=== PATIENT | female | born 1960 | race Caucasian/White ===

== ENCOUNTER 2019-06-12 11:39 | Outpatient (CLI) | payer MEDICAID, SELFPAY ==
[2019-06-12] MEDS: iohexol 300 mg/mL 50 mL Btl PO (12:46)
--- NOTE | 2019-06-12 13:00 | CT_ITS ---
WS: [id number] CT ABDOMEN PELVIS TECHNIQUE: Contrast-enhanced CT of the abdomen and pelvis with coronal and sagittal reformatted image s. CLINICAL INFORMATION: ABDOMINAL PAIN COMPARISON: None. DLP: 1213.[address] scans at [facility] use at least one of these dose optimization techniques: automat ed exposure control; mA and/or kV adjustment per patient size (includes targeted exams where dose is matched to clinical indication); or iterative reconstruction. FINDINGS: Liver is normal. Normal gallbladder. Portal vein and splenic vein are patent. Normal spleen. Right ad renal gland is normal. Left adrenal lesion with macroscopic fat measuring 3.4 cm consistent with adre nal myelolipoma. Mild fatty atrophy of the pancreas. Normal spleen. Normal renal parenchymal enhancement. Right renal cyst measuring measuring 13 mm. Tiny left renal cor tical cysts. No obstructing renal or ureteral calculi. Normal GE junction. Lung bases are well aerate d. No evidence of small or large bowel obstruction. No bowel distention. Prior tubal ligation. No free f luid in the abdomen or pelvis. Degenerative disease worse L4-[address]. CT/CT abdomen pelvis w con* [id number] IMPRESSION: 1. No evidence of small large bowel obstruction. No bowel distention. 2. No free fluid in the abdomen or pelvis. 3. No abdominal or pelvic lymphadenopathy. 4. Normal liver and gallbladder. 5. Normal caliber abdominal aorta. 6. Left adrenal myelolipoma measuring 3.4CM. 7. Small right kidney cyst measuring 13 mm. No hydronephrosis in either kidney . 8. No acute abdominal or pelvic findings.
[2019-06-12] MEDS: iohexol 300 mg/mL 100 mL Btl IV (13:19)
== END 2019-06-12 11:40 | disposition home or self-care (01) ==
LOC: RADWPI 11:43
PROVIDERS: Family Provider Nurse Practitioner Family; PCP Family Medicine; Visit Provider Surgery
DX: D17.79 Benign lipomatous neoplasm of other sites (principal); N28.1 Cyst of kidney, acquired; R10.9 Unspecified abdominal pain
CPT/HCPCS: 74177; Q9966; Q9967

== ENCOUNTER 2019-07-02 08:45 | Outpatient (CLI) | payer MEDICAID, SELFPAY ==
--- NOTE | 2019-07-02 08:57 | NM_ITS ---
WS: [id number] NUCLEAR MEDICINE HIDA SCAN WITH GALLBLADDER EJECTION FRACTION HISTORY: ABDOMINAL PAIN COMPARISON: CT abdomen 06/12/2019 TECHNIQUE: The patient was intravenously injected with 8.0 mCi of TC99m Mebrofenin. Immediate imaging over the right upper quadrant was followed by 5 minute image and additional images for a total of 60 minutes. Normal uptake of radiotracer throughout the liver. Activity identified in the gallbladder at 10 minutes and well distended by 60 minutes. Activity in the proximal small bowel was seen by 30 minutes. Good washout of the radiotracer from the liver by 60 minutes. The patient then drank 8 ounces of Ensure Plus. Ejection fraction at 60 minutes was 72%. Normal GB ej ection fraction is 35-75%. Post fatty meal symptoms: None. NM/NM hepatobiliary w phar* [id number] IMPRESSION: 1. Normal HIDA scan. 2. Normal gallbladder ejection fraction.
== END 2019-07-02 08:46 | disposition home or self-care (01) ==
PROVIDERS: Family Provider Nurse Practitioner Family; PCP Family Medicine; Visit Provider Surgery
DX: R10.9 Unspecified abdominal pain (principal)
CPT/HCPCS: 78227; A9537

== ENCOUNTER 2019-11-25 08:47 | Outpatient (CLI) | payer MEDICAID, SELFPAY ==
--- NOTE | 2019-11-25 08:45 | US_ITS ---
WS: [id number] THYROID ULTRASOUND HISTORY: thyroid nodule recheck COMPARISON: None available. Right lobe: 4.4 cm x 1.2 cm x 1.5 cm. Volume: 4.0 cm3. Normal size gland. Hypoechoic 7 x 3 x 6 mm nodule in the mid gland superficially. No increased vascul arity. Left lobe: 4.4 cm x 1.1 cm x 1.3 cm. Volume: 3.3 cm3. Normal size gland and echotexture. Benign-appearing hypoechoic nodule in the superior LEFT thyroid me asures 5 x 2 x 3 mm. Isthmus: 0.3 cm. US/US thyroid [id number] IMPRESSION: 1. Benign-appearing subcentimeter thyroid nodules. 2. No suspicious nodules identified at this time.
== END 2019-11-25 08:48 | disposition home or self-care (01) ==
LOC: RAD 08:49
PROVIDERS: PCP Nurse Practitioner Family; Visit Provider Nurse Practitioner Family
DX: E04.2 Nontoxic multinodular goiter (principal)
CPT/HCPCS: 76536

== ENCOUNTER → 2019-12-18 11:00 | Outpatient (BNVA) | payer MEDICAID, SELFPAY | PROVIDERS: PCP Nurse Practitioner Family; Visit Provider Internal Medicine Nephrology | DX: N18.2 Chronic kidney disease, stage 2 (mild) (principal); E10.9 Type 1 diabetes mellitus without complications; E04.1 Nontoxic single thyroid nodule | CPT/HCPCS: 80053; 80061; 80069; 82043; 82306; 82310; 83036; 83970; 84443; 85025 ==

== ENCOUNTER → 2020-02-02 08:36 | Outpatient (BNVA) | payer MEDICAID, SELFPAY | PROVIDERS: PCP Nurse Practitioner Family; Visit Provider Internal Medicine | DX: E04.1 Nontoxic single thyroid nodule (principal); E10.649 Type 1 diabetes mellitus with hypoglycemia without coma; E10.65 Type 1 diabetes mellitus with hyperglycemia; E34.9 Endocrine disorder, unspecified; E66.9 Obesity, unspecified; I10 Essential (primary) hypertension; R63.5 Abnormal weight gain | CPT/HCPCS: 99204 ==

== ENCOUNTER → 2020-02-04 11:33 | Outpatient (BNVA) | payer MEDICAID, SELFPAY | PROVIDERS: PCP Nurse Practitioner Family; Visit Provider Nurse Practitioner Family | DX: R63.5 Abnormal weight gain (principal) | CPT/HCPCS: 82530 ==

== ENCOUNTER → 2020-03-11 12:13 | Outpatient (BNVA) | payer MEDICAID, SELFPAY | PROVIDERS: PCP Nurse Practitioner Family; Visit Provider Surgery | DX: Z11.59 Encounter for screening for other viral diseases (principal); R10.9 Unspecified abdominal pain | CPT/HCPCS: 87635 ==

== ENCOUNTER 2020-03-16 06:39 | Day surgery (SDC) | payer MEDICAID, SELFPAY ==
[2020-03-11 08:33] VITALS: BMI 32.5
[2020-03-16 06:47] VITALS: BP 148/66; PULSE 74; RESP 18; TEMP 36.1; O2SAT 96
[2020-03-16] MEDS: sodium chloride 0.9% 1,000 ML 30 ML IV (07:14)
[2020-03-16 07:15] LABS: Glucose Point of Care 231 mg/dL (70-110)
--- NOTE | 2020-03-16 07:23 | P.ANESASSM_ITS ---
Pre-Anesthetic Assessment Pre-Anesthetic Assessment: Height/Weight: Height 1.75 m Weight 99.79 kg Temp Pulse Resp BP Pulse Ox 97 F L 74 18 148/66 96 03/16/20 06:47 03/16/20 06:47 03/16/20 06:47 03/16/20 06:47 03/16/20 06:47 Preop Diagnosis: Abdominal pain Proposed Procedure: Operation Date: 03/16/20 07:30 Proposed Procedures p Colonoscopy 52607 R10.9(Not Applicable) - Gunnar Ayon MD Familial anesthetic complications: denies Was Beta Calixto taken within 24 hours: Yes Last intake: Intake Last Liquid Date 03/15/20 Last Liquid Time 20:00 Last Solid Date 03/14/20 Last Solid Time 18:00 Last Intake: 00:01 Social: Social History: No alcohol and No tobacco Exam: Pre-Anes Outpt Exam: alert, oriented x 3 and clear to auscultation bilaterally Airway: Submandibular: WNL Cervical ROM: WNL MP: 2 Pulmonary: Pulmonary: None reported CV/HEM: CV/HEM: Afib, Arrythmia (a-fibb), CAD (stents x2 in 1999 and 2008 ), HTN and DC Comments: Dr. Samuels seen him 3-4 months ago and cleared for anesthesia : : None reported (cyst on kidney and cyst on adrenal gland) Hepatic: Hepatic: None reported GI: GI: Hiatus hernia Metabolic: Metabolic: DM (Insulin dependent ), Morbid obesity and Thyroid (thyroid nodules bilaterally ) Musc/skel: Musc/skel: Fibromyalgia, Lower Back Pain and RA Neuropsych: Neuropsych: None reported Anesthetic Plan: ASA status: 3 Anesthesia: Anesthesia Evaluation and MAC Meds/Allergies Current Medications: Current Medications Generic Name Dose Route Start Last Admin Trade Name Freq PRN Reason Stop Dose Admin Sodium Chloride 1,000 mls @ 30 ml s/hr 03/16/20 06:45 03/16/20 07:14 Sodium Chloride 0.9% IV 03/17/20 06:44 30 mls/hr .Q24H NARESH Administration PFSH Anesthesia PFSH: Medical History COPD (chronic obstructive pulmonary disease) Diabetes Fibromyalgia Hyperlipidemia Hypertension Left lower quadrant pain Major depressive disorder Umbilical hernia Surgical History History of appendectomy History of History of eye surgery History of heart artery stent 2 seperate surgeries History of tubal ligation Family History Mother Diabetes Hypertension CAD (coronary artery disease) Father Hypertension CAD (coronary artery disease) Heart attack Denies family history of Anesthesia complication Bleeding disorder Social History Smoking and tobacco status: never smoked Second hand smoke exposure: No Alcohol intake: never Lives independently: Yes Marital status: Current occupational status: disabled History of recent travel: No Current gender identity: Female Dayna/Christian: None Data Anesthesia Other Labs: Laboratory Results - last 48 hr 03/16/20 07:10 POC Glucose 231 Cardiac Studies: No Data to Display
--- NOTE | 2020-03-16 07:46 | W.PM.OPSUD ---
Surgery/Procedure H&P Update DATE OF PROCEDURE: March 16, 2020 DATE H&P PERFORMED: 02/29/20 H&P UPDATE INFORMATION: I have reviewed H&P completed within last 30 days, I have examined patient prior to procedure and No changes to prior documentation PREOP DIAGNOSIS: Abdominal pain PRIMARY INDICATION FOR PROCEDURE: The same PLANNED PROCEDURE: Operation Date: 03/16/20 07:30 Proposed Procedures p Colonoscopy 60488 R10.9(Not Applicable) - Gunnar Ayon MD
[2020-03-16 08:22] VITALS: BP 153/66; PULSE 72; RESP 18; TEMP 36.2; O2SAT 96
[2020-03-16 08:35] VITALS: BP 144/59; PULSE 69; RESP 18; TEMP 36.4; O2SAT 98
--- NOTE | 2020-03-16 08:50 | ANE.PACU2 ---
Inpatient post-anesthesia follow up: Airway intact: Yes Vital signs: Temperature 97.5 F Pulse Rate 69 Respiratory Rate 18 Blood Pressure 144/59 Pulse Oximetry 98 Oxygen Delivery Me thod Room Air Oxygen Flow Rate Fraction of Inspir ed Oxygen Hydration adequate: Yes Nausea and vomiting: No Pain level: 1 Mental status: Baseline
== END 2020-03-16 08:49 | disposition home or self-care (01) ==
PROVIDERS: PCP Family Medicine; Visit Provider Surgery
PROC: 0DJD8ZZ Inspection of Lower Intestinal Tract, Via Natural or Artificial Opening Endoscopic (ICD-10-PCS; CPT 45378; principal; 2020-03-16 07:30)
DX: R10.9 Unspecified abdominal pain (principal); I48.91 Unspecified atrial fibrillation; I25.10 Atherosclerotic heart disease of native coronary artery without angina pectoris; Z95.5 Presence of coronary angioplasty implant and graft; I10 Essential (primary) hypertension; I25.2 Old myocardial infarction; E11.9 Type 2 diabetes mellitus without complications; Z79.4 Long term (current) use of insulin; M79.7 Fibromyalgia; M06.9 Rheumatoid arthritis, unspecified; J44.9 Chronic obstructive pulmonary disease, unspecified; F32.9 Major depressive disorder, single episode, unspecified
CPT/HCPCS: 12345; 36416; 45378; 82962; J2704; J7030

== ENCOUNTER → 2020-03-21 09:39 | Outpatient (BNVA) | payer MEDICAID, SELFPAY | PROVIDERS: PCP Family Medicine; Visit Provider Internal Medicine | DX: E04.1 Nontoxic single thyroid nodule (principal); E10.649 Type 1 diabetes mellitus with hypoglycemia without coma; E10.65 Type 1 diabetes mellitus with hyperglycemia; E66.9 Obesity, unspecified; I10 Essential (primary) hypertension; R63.5 Abnormal weight gain | CPT/HCPCS: 99214 ==

== ENCOUNTER → 2020-05-12 09:42 | Outpatient (BNVA) | payer MEDICAID, SELFPAY | PROVIDERS: PCP Family Medicine; Visit Provider Orthopaedic Surgery | DX: M54.5 Low back pain (principal) | CPT/HCPCS: 72114 ==

== ENCOUNTER → 2020-05-31 14:36 | Outpatient (BNVA) | payer MEDICAID, SELFPAY | PROVIDERS: PCP Family Medicine; Visit Provider Internal Medicine Pulmonary Disease | DX: E03.9 Hypothyroidism, unspecified (principal); J44.9 Chronic obstructive pulmonary disease, unspecified; R63.5 Abnormal weight gain; R06.02 Shortness of breath; E04.1 Nontoxic single thyroid nodule | CPT/HCPCS: 82785; 84439; 84443; 85025; 86003; 86331; 86606; 86609; 87635 ==

== ENCOUNTER 2020-06-09 09:48 | Outpatient (CLI) | payer MEDICAID, SELFPAY ==
--- NOTE | 2020-06-09 10:29 | PFTS_ITS ---
Date of Study:06/09/20 Date of Dictation: 06/16/2020 MECHANICS: Forced vital capacity (FVC) is reduced. Forced expiratory volume in one second (FEV1) is . Reduced to 66 FEV1/FVC is normal. FLOW VOLUME LOOP: . LUNG VOLUMES: Total lung capacity (TLC) is low normal. Residual volume (RV) is low normal. DIFFUSING CAPACITY FOR CARBON MONOXIDE: Normal . INTERPRETATION: The spirometry consistent with restrictive pattern. Low normal lung volumes suggestive of restrictive lung disease. Normal gas transfer. Please correlate clinically MTDD
[2020-06-09 10:31] VITALS: BP 149/69; BP 161/75
== END 2020-06-09 09:49 | disposition home or self-care (01) ==
LOC: RT 09:51
PROVIDERS: PCP Family Medicine; Visit Provider Internal Medicine Pulmonary Disease
DX: J44.9 Chronic obstructive pulmonary disease, unspecified (principal)
CPT/HCPCS: 94010; 94618; 94726; 94729

== ENCOUNTER → 2020-07-11 09:37 | Outpatient (BNVA) | payer MEDICAID, SELFPAY | PROVIDERS: PCP Family Medicine; Visit Provider Internal Medicine | DX: E03.9 Hypothyroidism, unspecified (principal); E04.1 Nontoxic single thyroid nodule; E10.649 Type 1 diabetes mellitus with hypoglycemia without coma; E10.65 Type 1 diabetes mellitus with hyperglycemia; E34.9 Endocrine disorder, unspecified; E66.9 Obesity, unspecified; R63.5 Abnormal weight gain | CPT/HCPCS: 95250; 99215 ==

== ENCOUNTER 2020-07-13 12:00 | Outpatient (CLI) | payer MEDICAID, SELFPAY | END 2020-07-13 12:01 | disposition home or self-care (01) | LOC: SLEEP 07-14 09:50 | PROVIDERS: PCP Family Medicine; Visit Provider Internal Medicine Pulmonary Disease | DX: G47.33 Obstructive sleep apnea (adult) (pediatric) (principal) | CPT/HCPCS: G0399 ==

== ENCOUNTER 2020-07-14 09:48 | Outpatient (CLI) | payer MEDICAID, SELFPAY ==
--- NOTE | 2020-07-14 11:30 | CT_ITS ---
WS: [id number] CT ABDOMEN PELVIS TECHNIQUE: Contrast-enhanced CT of the abdomen and pelvis with coronal and sagittal reformatted image s. CLINICAL INFORMATION: R10.84 - Generalized abdominal pain COMPARISON: CT June 12, 2019 DLP: 1938.[address] scans at [facility] use at least one of these dose optimization techniques: automat ed exposure control; mA and/or kV adjustment per patient size (includes targeted exams where dose is matched to clinical indication); or iterative reconstruction. FINDINGS: Normal liver. Normal portal vein and splenic vein. Normal gallbladder. Normal GE junction. Portal vein and splenic veins are patent. Stable left adrenal lesion with macroscopic fat measuring 3.5 cm consistent with myelolipoma. Fatty a trophy of the pancreas. Spleen is normal. Stable right renal cyst measuring 13 mm. Stable small left renal cortical cysts. Normal renal parench ymal enhancement. No hydronephrosis. No evidence of small or large bowel obstruction. Prior tubal ligation. No free fluid in the abdomen o r pelvis. Incidental fat-containing umbilical hernia. No abdominal or pelvic lymphadenopathy. No ingu inal lymphadenopathy. Degenerative disc disease worse L4-5 with moderate to severe central canal sten osis.. CT/CT abdomen pelvis w con* [id number] IMPRESSION: 1. No acute abdominal or pelvic findings. 2. Stable left adrenal myelolipoma. 3. No hydronephrosis in either kidney. Small bilateral renal cysts. 4. Tubal ligation clips. 5. No evidence of small or large bowel obstruction. 6. No abdominal or pelvic lymphadenopathy. 7. Moderate to severe central canal stenosis L4-5 with degenerative disc disea se at this level.
[2020-07-14] MEDS: iohexol 300 mg/mL 100 mL Btl PO (11:33)
[2020-07-14] MEDS: iohexol 300 mg/mL 50 mL Btl PO (11:34)
== END 2020-07-14 09:49 | disposition home or self-care (01) ==
LOC: CT 09:49
PROVIDERS: PCP Family Medicine; Visit Provider Nurse Practitioner Family
DX: R10.84 Generalized abdominal pain (principal); M48.061 Spinal stenosis, lumbar region without neurogenic claudication; M51.36 Other intervertebral disc degeneration, lumbar region; D17.79 Benign lipomatous neoplasm of other sites
CPT/HCPCS: 74177

== ENCOUNTER → 2020-07-18 09:26 | Outpatient (BNVA) | payer MEDICAID, SELFPAY | PROVIDERS: PCP Family Medicine; Visit Provider Family Medicine | DX: J44.9 Chronic obstructive pulmonary disease, unspecified (principal); J98.4 Other disorders of lung; J84.9 Interstitial pulmonary disease, unspecified; E03.9 Hypothyroidism, unspecified; E10.65 Type 1 diabetes mellitus with hyperglycemia; E34.9 Endocrine disorder, unspecified; E78.5 Hyperlipidemia, unspecified | CPT/HCPCS: 80053; 80061; 82310; 83036; 83970; 84439; 84443; 85025; 85651; 86140; 86225; 86235 ==

== ENCOUNTER 2020-07-25 10:57 | Outpatient (CLI) | payer MEDICAID, SELFPAY ==
--- NOTE | 2020-07-25 12:13 | XR_ITS ---
WS: [id number] CHEST 2 VIEWS HISTORY: Dyspnea on exertion COMPARISON: 10/18/2018 Lungs: Focal area of increased opacification at the medial RIGHT lung base. New since the prior exami nation. Otherwise lungs are clear. Cardiac size: Normal. Mediastinum/Aorta: Normal mediastinum. Bones: Normal. XR/XR chest 2V* [id number] IMPRESSION: Subsegmental area of pneumonitis at the medial RIGHT lung base. Otherwise negat man.
== END 2020-07-25 10:58 | disposition home or self-care (01) ==
LOC: RAD 11:06 → RADWPI 12:15
PROVIDERS: PCP Family Medicine; Visit Provider Internal Medicine Pulmonary Disease
DX: E04.1 Nontoxic single thyroid nodule (principal); E10.649 Type 1 diabetes mellitus with hypoglycemia without coma; E10.65 Type 1 diabetes mellitus with hyperglycemia; E34.9 Endocrine disorder, unspecified; E66.9 Obesity, unspecified; I10 Essential (primary) hypertension; R63.5 Abnormal weight gain; R06.02 Shortness of breath; J18.9 Pneumonia, unspecified organism
CPT/HCPCS: 71046; 95251; 99214

== ENCOUNTER 2020-09-05 08:56 | Outpatient (CLI) | payer MEDICAID, SELFPAY ==
--- NOTE | 2020-09-05 09:15 | CT_ITS ---
WS: [id number] CT CHEST noncontrast, high-resolution. HISTORY: rule out interstitial lung disease TECHNIQUE: High-resolution chest CT. Coronal and sagittal reformats are submitted. All CT scans at [facility] use at least one of these dose optimization techniques: automated exposure contr ol; mA and/or kV adjustment per patient size (includes targeted exams where dose is matched to clinic al indication); or iterative reconstruction. CONTRAST: None DLP: 1754.88 mGycm COMPARISON: 10/18/2018 Lungs and central airway: Good inspiration with no areas of groundglass attenuation or mosaic attenua tion. There is some very minimal distal interstitial thickening which is nonspecific. There is no hon eycombing or bronchiectasis. With expiration and prone positioning. There is no focal area of atelect asis and no air trapping. Pleura: Normal. No pleural effusion. Heart and pericardium: Heart is slightly enlarged. Coronary artery atherosclerosis and coronary arter y stents are noted. No pericardial effusion. Mediastinum and magui: No mediastinum or hilar adenopathy. Vessels: Pulmonary artery size is equal to the aorta. Mild atherosclerosis of the aorta. Chest wall and lower neck: No soft tissue masses. Upper abdomen: Stable LEFT adrenal myelolipoma measuring 2.9 x 2.3 cm. Osseous structures: No destructive process. CT/CT chest wo con [id number] IMPRESSION: 1. No evidence for significant interstitial lung disease. There is no honeycom ahsan or bronchiectasis or air trapping. 2. Very minimal nonspecific thickening of the distal airways. May be represent ative of early interstitial lung disease or changes of pneumonitis/respiratory bronchiolitis. 3. Stable LEFT adrenal myelolipoma.
== END 2020-09-05 08:57 | disposition home or self-care (01) ==
PROVIDERS: PCP Family Medicine; Visit Provider Internal Medicine Pulmonary Disease
DX: J84.9 Interstitial pulmonary disease, unspecified (principal); D17.79 Benign lipomatous neoplasm of other sites
CPT/HCPCS: 71250

== ENCOUNTER → 2020-09-13 10:02 | Outpatient (BNVA) | payer MEDICAID, SELFPAY | PROVIDERS: PCP Family Medicine; Visit Provider Internal Medicine Interventional Cardiology | DX: E78.2 Mixed hyperlipidemia (principal) | CPT/HCPCS: 80061 ==

== ENCOUNTER 2020-09-15 20:00 | Outpatient (CLI) | payer MEDICAID, SELFPAY | END 2020-09-15 20:01 | disposition home or self-care (01) | LOC: SLEEP 09-16 09:07 | PROVIDERS: PCP Family Medicine; Visit Provider Internal Medicine Pulmonary Disease | DX: G47.33 Obstructive sleep apnea (adult) (pediatric) (principal) | CPT/HCPCS: 95811 ==

== ENCOUNTER → 2020-10-19 09:38 | Outpatient (BNVA) | payer MEDICAID, SELFPAY | PROVIDERS: PCP Family Medicine; Visit Provider Family Medicine | DX: E03.9 Hypothyroidism, unspecified (principal); E10.9 Type 1 diabetes mellitus without complications; E78.2 Mixed hyperlipidemia; I10 Essential (primary) hypertension | CPT/HCPCS: 80053; 80061; 83036; 84443; 85025 ==

== ENCOUNTER → 2020-10-26 10:44 | Outpatient (BNVA) | payer MEDICAID, SELFPAY | PROVIDERS: PCP Family Medicine; Visit Provider Family Medicine | DX: Z01.419 Encounter for gynecological examination (general) (routine) without abnormal findings (principal); Z12.31 Encounter for screening mammogram for malignant neoplasm of breast | CPT/HCPCS: 88175 ==

== ENCOUNTER 2020-11-18 13:51 | Outpatient (CLI) | payer MEDICAID, SELFPAY ==
--- NOTE | 2020-11-18 14:15 | USCV_ITS ---
Cheryl Gordon Age: 60 Gender: F : 1960 Exam Date: 11/18/2020 14:03 Ordering Phys: Tj Lipscomb MD Technologist: Nurys Boyd Exam Location: [facility] [place] Indication: dyspnea, unspecified BP: 128 / 82 HR: 58 Rhythm: Sinus Technical Quality: Adequate MEASUREMENTS (Male / Female) Normal Values 2D ECHO LV Diastolic Diameter PLAX 2.8 cm 4.2 - 5.9 / 3.9 - 5.3 cm LV Systolic Diameter PLAX 1.7 cm IVS Diastolic Thickness 1.9 cm 0.6 - 1.0 / 0.6 - 0.9 cm IVS Systolic Thickness 1.9 cm LVPW Diastolic Thickness 1.1 cm 0.6 - 1.0 / 0.6 - 0.9 cm LVPW Systolic Thickness 1.8 cm LVOT Diameter 2.1 cm LV Ejection Fraction 2D Teich 72.6 % LV Ejection Fraction MOD 2C 79.1 % LV Ejection Fraction 2C AL 80.2 % LA Diameter 3.0 cm LA Width 2.8 cm LA Height 4.9 cm RA Width 3.1 cm RA Height 3.6 cm Aorta at Sinotubular Diameter 2.9 cm M-MODE Aortic Annulus Diameter 3.2 cm LA Ao Ratio MM 0.9 MV E Point Septal Separation 0.2 cm DOPPLER AV Peak Velocity 142.0 cm/s LVOT Peak Velocity 154.0 cm/s AV Area Cont Eq vti 3.7 cm squared AV Area Cont Eq pk 3.6 cm squared MV Peak Velocity 126.0 cm/s MV Area PHT 3.1 cm squared Mitral E to A Ratio 0.9 MV E' Velocity 56.0 cm/s Mitral E to MV E' Ratio 15.5 Mitral E to LV E' Lateral Ratio 13.0 Mitral E to LV E' Septal Ratio 19.6 TR Peak Velocity 196.0 cm/s TR Peak Gradient 15.4 mmHg TR Mean Velocity 135.9 cm/s TR Mean Gradient 9.3 mmHg TR Velocity Time Integral 51.1 cm Right Atrial Pressure 3.0 mmHg Pulmonary Artery Systolic Pressu 18.4 mmHg PV Peak Velocity 88.0 cm/s RV Acceleration Time 0.1 s RV Ejection Time 0.3 s RV AcT/ET 0.5 FINDINGS Left Ventricle Normal left ventricular cavity size. Normal left ventricular systolic function. No regional wall motion abnormalities. Left ventricular ejection fraction is estimated at 60 %. Grade I/IV diastolic dysfunction (abnormal relaxation filling pattern), normal to mildly elevated filling pressures. Right Ventricle The right ventricle is normal in size and function. Right Atrium The right atrium is normal in size. Left Atrium The left atrium is normal in size. Mitral Valve Structurally normal mitral valve without significant stenosis or prolapse. There is no mitral regurgitation. Aortic Valve Structurally normal aortic valve without significant sclerosis or stenosis. There is no aortic regurgitation. Tricuspid Valve Structurally normal tricuspid valve without significant stenosis or regurgitation. Pulmonary artery systolic pressure is normal. Pulmonic Valve Structurally normal pulmonic valve without significant stenosis. There is no pulmonic regurgitation. Pericardium Normal pericardium without effusion. Aorta Normal ascending aorta dimension. CONCLUSIONS 1-Normal left ventricular cavity size. Normal left ventricular systolic function. No regional wall motion abnormalities. Left ventricular ejection fraction is estimated at 60 %. Grade I/IV diastolic dysfunction (abnormal relaxation filling pattern), normal to mildly elevated filling pressures. 2-No significant valve abnormalities. 3-There is no pericardial effusion. 4-Pulmonary artery systolic pressure is within normal limits. 5-Right atrial pressure is around 5 mm of mercury. 6-Due to poor quality images in the prior study cannot draws a comparison Wilda Vargas MD (Electronically Signed) Final Date: 18 November 2020 19:11 S
== END 2020-11-18 13:52 | disposition home or self-care (01) ==
LOC: US 13:51
PROVIDERS: PCP Family Medicine; Visit Provider Internal Medicine Pulmonary Disease
DX: R06.00 Dyspnea, unspecified (principal)
CPT/HCPCS: 93306

== ENCOUNTER 2020-12-02 10:09 | Outpatient (CLI) | payer MEDICAID, SELFPAY ==
--- NOTE | 2020-12-02 10:00 | MM_ITS ---
WS: [id number] Bilateral screening digital mammogram, 12/02/2020 Clinical Data: Z12.31 - Encounter for screening mammogram for malignant ... Comparison: 01/29/2019, 04/17/2017. Findings: The breast parenchymal pattern shows fat replacement. No spiculated masses or clustered calcification s are seen. There are no secondary signs of carcinoma. There is a mole marker on the left breast. The re are small lymph nodes in both axilla. MM/[place] [id number] Impression: 1. Negative bilateral mammogram unchanged. 2. Recommend annual screening mammograms. BIRADS: 1-Negative FOLLOW UP: 1 Year Follow-up The CAD checker stocker was used.
== END 2020-12-02 10:10 | disposition home or self-care (01) ==
LOC: RADSHAW 10:12
PROVIDERS: PCP Family Medicine; Visit Provider Family Medicine
DX: Z12.31 Encounter for screening mammogram for malignant neoplasm of breast (principal)
CPT/HCPCS: 77067

== ENCOUNTER → 2020-12-15 09:40 | Outpatient (BNVA) | payer MEDICAID, SELFPAY | PROVIDERS: PCP Family Medicine; Visit Provider Internal Medicine Nephrology | DX: N18.31 Chronic kidney disease, stage 3a (principal); E11.9 Type 2 diabetes mellitus without complications; I10 Essential (primary) hypertension; E78.5 Hyperlipidemia, unspecified; E03.9 Hypothyroidism, unspecified; I25.10 Atherosclerotic heart disease of native coronary artery without angina pectoris; Z79.899 Other long term (current) drug therapy | CPT/HCPCS: 80069; 82043; 82306; 82310; 83970; 85025 ==

== ENCOUNTER 2020-12-30 14:12 | Emergency (ER) | payer MEDICAID, SELFPAY ==
[2020-12-30 14:21] VITALS: BP 182/71; PULSE 65; RESP 15; TEMP 36.9; O2SAT 97; BMI 34.3
--- NOTE | 2020-12-30 16:02 | USR_ITS ---
PROCEDURE INFORMATION: Exam: US Abdomen; Limited Exam date and time: 12/30/2020 4:02 PM Age: 60 years old Clinical indication: Abdominal pain; Prior surgery; Surgery date: 6+ months; Surgery type: Appy removed in 3rd grade; Additional info: Bruising, pain, swelling right side TECHNIQUE: Imaging protocol: US abdomen. Real time ultrasound with image documentation. Limited exam focused on the region of clinical interest. COMPARISON: US Abdomen* [id number] 01/29/2019 8:40 AM FINDINGS: Liver: The liver is of normal echogenicity measuring 14.3 cm. Gallbladder: Negative Martinez sign. No gallstones. Normal gallbladder wall thickness. Common bile duct: CBD 4.2 mm. No intrahepatic ductal dilatation. Pancreas: The pancreas is obscured by bowel gas. Intraperitoneal space: No ascites. US/US abdomen limited [id number] IMPRESSION: No acute findings.
--- NOTE | 2020-12-30 16:04 | ED_ITS ---
HPI - Abdominal Pain General: Chief Complaint: Abdominal Pain Stated Complaint: rash on lower extremities, Pain in Lower ABD Time Seen by Provider: 12/30/20 15:57 History of Present Illness: HPI narrative: Patient here because she said she is post getting an abdominal ultrasound done, that was ordered by her primary care provider, which history shows vaginal OB ultrasound was ordered. Patient states pain is upper right quadrant mid quadrant area states she has some bruising feels like a lump there. Also has a rash on her lower extremities that itch pretty bad and not responding to injection she received. MD elicited complaint: abdominal pain and other (Rash) Onset (ago): day(s) Pain Consistency: intermittent Associated Symptoms: Denies chills, fever(s), nausea and vomiting Review of Systems Const: Denies: fever(s), chills or body aches Eyes: Denies: change in vision or blurry vision ENMT: Denies: throat pain or nasal congestion Card: Denies: chest pain or dyspnea on exertion Resp: Denies: dyspnea, productive cough or non-productive cough GI: Reports: abdominal pain; Denies: nausea or vomiting Musc: Denies: extremity pain Skin/Breast: Reports: rash (Both lower extremities), pruritus and erythema Neuro: Denies: headache(s) Psych: Denies: anxiety or depression Bello/Lymph: Denies: easy bruising PFSH ED PFSH: Medical History COPD (chronic obstructive pulmonary disease) Diabetes Fibromyalgia Hyperlipidemia Hypertension Left lower quadrant pain Major depressive disorder Umbilical hernia Surgical History History of appendectomy History of History of eye surgery History of heart artery stent 2 seperate surgeries History of tubal ligation Family History Mother Diabetes Hypertension CAD (coronary artery disease) Father Hypertension CAD (coronary artery disease) Heart attack Denies family history of Anesthesia complication Bleeding disorder Social History Second hand smoke exposure: Yes Smoking risk assessment/counseling performed?: Yes Alcohol intake: never Lives independently: Yes Household members: none Housing: Apartment Marital status: Current occupational status: disabled Pets and animals: Yes History of recent travel: No Current gender identity: Female Dayna/Jain: None Physical Exam Const: COMMON NORMALS: no acute distress, average body habitus and patient oriented x3 HENMT: COMMON NORMALS: normocephalic HEAD & SCALP: normal to inspection and normocephalic FACE & SINUS: normal facial exam Eye: COMMON NORMALS: conjunctivae normal GENERAL EYE: appearance normal, both eyes and all related structures CONJUNCTIVA: Yes conjunctivae normal Neck/C-Spine: COMMON NORMALS: no JVD Chest: COMMONS NORMALS: normal inspection of the chest Resp: COMMON NORMALS: normal respiratory effort and clear to auscultation bilaterally AUSCULTATION: clear to auscultation bilaterally Cardio: COMMON NORMALS: no JVD, regular rate and regular rhythm RATE: regular rate RHYTHM: regular rhythm GI: AUSCULTATION: Yes normoactive bowel sounds PALPATION: Yes Tenderness to palpation present (GI) (Possibly mild bruising noted hard to determine there is a lot due to size) Details: RLQ and RUQ PERCUSSION: normal to percussion Extremity: COMMON NORMALS: normal to inspection and full ROM Neuro: COMMON NORMALS: patient oriented x3 Skin: OTHER: Has a red maculopapular rash on both lower extremities worse on the right than the left on the calves. Nonblanching Course Vital Signs: Vital signs: Vital Signs Temperature 98.5 F 12/30/20 14:21 Pulse Rate 65 12/30/20 14:21 Respiratory Rate 15 12/30/20 14:21 Blood Pressure 182/71 12/30/20 14:21 Pulse Oximetry 97 12/30/20 14:21 MDM - Abdominal Pain MDM Narrative: Medical decision making narrative: Ultrasounds negative. Does show increased bowel gas area. Patient is happy with the results. Rash appears to be contact Derm lower extremities. Patient brought hydrocortisone cream use [id number]. Patient follow-up Dr. Myers. Discharge Plan Discharge Patient Disposition: Home Clinical Impression: Abdominal pain Qualifiers: Abdominal location: generalized Qualified Code(s): R10.84 - Generalized abdominal pain Contact dermatitis Qualifiers: Contact dermatitis type: irritant Contact dermatitis trigger: other trigger Qualified Code(s): L24.89 - Irritant contact dermatitis due to other agents Condition: Stable Prescriptions: No Action ezetimibe 10 mg tablet 10 mg PO DAILY RF: 0 amlodipine 5 mg tablet 5 mg PO BID Qty: 60 RF: 3 aspirin 81 mg tablet,delayed release (DR/EC) 81 mg PO DAILY RF: 0 epinephrine 0.1 mg/0.1 mL auto-injector 0.1 ml IM PRN (Reason: Allergic Reaction) RF: 0 Novolog Flexpen U-100 Insulin 100 unit/mL (3 mL) insulin pen 6 unit SUBCUT TID RF: 0 carvedilol 6.25 mg tablet 6.25 mg PO BID Qty: 60 RF: 4 furosemide [Lasix] 40 mg tablet 40 mg PO QAM Qty: 90 RF: 1 trazodone 150 mg tablet See Rx Instructions .ROUTE .COMPLEX Qty: 90 RF: 1 ceftriaxone 1 gram recon soln 1 g IM ONCE Qty: 1 RF: 0 lidocaine (PF) 20 mg/mL (2 %) solution 20 mg IM ONCE Qty: 2 RF: 0 clindamycin HCl 300 mg capsule 300 mg PO TID Qty: 30 RF: 0 (DME) lancets Misc See Rx Instructions .ROUTE .MEDSUPPLY Qty: 200 RF: 5 (DME) blood-glucose meter [OneTouch Verio Meter] Misc See Rx Instructions .ROUTE .MEDSUPPLY Qty: 1 RF: 0 paroxetine HCl 40 mg tablet 40 mg PO DAILY Qty: 90 RF: 0 lisinopril 20 mg tablet See Rx Instructions .ROUTE .COMPLEX Qty: 90 RF: 1 (DME) Blood Glucose Test Strip See Rx Instructions .ROUTE .MEDSUPPLY Qty: 100 RF: 3 (DME) pen needle, diabetic [TechLITE Pen Needle] 31 gauge x 5/16 needle See Rx Instructions .ROUTE .MEDSUPPLY Qty: 400 RF: 4 albuterol sulfate [ProAir HFA] 90 mcg/actuation HFA aerosol inhaler 2 puff inhalation QID PRN (Reason: shortness of breath or wheezing) Qty: 18 RF: 3 nitroglycerin 0.4 mg tablet, sublingual See Rx Instructions .ROUTE .COMPLEX Qty: 25 RF: 0 levothyroxine 25 mcg capsule 25 mcg PO DAILY Qty: 30 RF: 3 Levemir FlexTouch U-100 Insuln 100 unit/mL (3 mL) insulin pen See Rx Instructions .ROUTE .COMPLEX Qty: 15 RF: 0 atorvastatin 80 mg tablet See Rx Instructions .ROUTE .COMPLEX Qty: 90 RF: 0 sucralfate 100 mg/mL suspension 5 ml PO QID Qty: 200 RF: 3 Discharge Orders: Discharge ED (Routine); Ordered 12/30/20 Ordered By: Joel Perez Referrals: Lesvia Myers MD [Primary Care Provider] - Discharge Diet: Advance as tolerated and As Directed Discharge Activity: Resume usual activity Patient Instructions: Contact Dermatitis (ED), Abdominal Pain (ED) Activity Restrictions/Additional Instructions: Follow-up with medical provider as directed. Take medications as prescribed. Return to the ER or your medical provider if condition worsens. Please read and understand discharge instructions. If any questions ask please. Coding Level of Care Code ED Cryogenic Transport Driver for Kayleigh Fwd Exam Comprehensive
== END 2020-12-30 16:51 | disposition home or self-care (01) ==
PROVIDERS: Emergency Provider Nurse Practitioner Family; PCP Family Medicine
DX: R10.84 Generalized abdominal pain (principal); L24.89 Irritant contact dermatitis due to other agents; J44.9 Chronic obstructive pulmonary disease, unspecified; E11.9 Type 2 diabetes mellitus without complications; E78.5 Hyperlipidemia, unspecified; I10 Essential (primary) hypertension; Z79.4 Long term (current) use of insulin
CPT/HCPCS: 76705; 99282

== ENCOUNTER → 2021-01-18 09:07 | Outpatient (BNVA) | payer MEDICAID, SELFPAY | PROVIDERS: PCP Family Medicine; Visit Provider Family Medicine | DX: E10.65 Type 1 diabetes mellitus with hyperglycemia (principal) | CPT/HCPCS: 83036 ==

== ENCOUNTER → 2021-02-01 09:54 | Outpatient (BNVA) | payer MEDICAID, SELFPAY | PROVIDERS: PCP Family Medicine; Visit Provider Nurse Practitioner Women's Health | DX: R10.2 Pelvic and perineal pain (principal); N85.4 Malposition of uterus | CPT/HCPCS: 76830 ==

== ENCOUNTER → 2021-02-06 00:01 | Outpatient (BNVA) | payer MEDICAID, SELFPAY | PROVIDERS: PCP Family Medicine; Visit Provider Obstetrics & Gynecology | DX: R35.0 Frequency of micturition (principal); N39.46 Mixed incontinence; N81.9 Female genital prolapse, unspecified; N81.10 Cystocele, unspecified; N81.6 Rectocele | CPT/HCPCS: 87086 ==

== ENCOUNTER → 2021-02-15 10:53 | Outpatient (BNVA) | payer MEDICAID, SELFPAY | PROVIDERS: PCP Family Medicine; Visit Provider Internal Medicine Nephrology | DX: N18.2 Chronic kidney disease, stage 2 (mild) (principal) | CPT/HCPCS: 80048; 82043; 82310; 83970; 85025 ==

== ENCOUNTER → 2021-02-16 15:00 | Outpatient (BNVA) | payer MEDICAID, SELFPAY | PROVIDERS: PCP Family Medicine; Visit Provider Family Medicine | DX: R35.0 Frequency of micturition (principal); M25.562 Pain in left knee; G89.29 Other chronic pain; K29.70 Gastritis, unspecified, without bleeding | CPT/HCPCS: 81000 ==

== ENCOUNTER 2021-05-04 10:02 | Outpatient (CLI) | payer MEDICAID, SELFPAY ==
--- NOTE | 2021-05-04 10:13 | US_ITS ---
WS: [id number] Complete ABDOMINAL ULTRASOUND HISTORY: right lower quad pain COMPARISON: None available. Liver: 13.3 cm in length. Liver is normal size and echogenicity with no mass or intrahepatic dilatati on. Portal Vein: Normal hepatopetal flow with monophasic waveform. Gallbladder: Normally distended with no gallstones, wall thickening or pericholecystic fluid. Gallbladder wall thickness: 0.3 cm. Pancreas: Normal size and echogenicity. CBD: 0.3 cm. Right kidney: 10.9 cm x 5.2 cm x 5.5 cm. No mass, cortical thickening or hydronephrosis. Left kidney: 9.7 cm x 4.8 cm x 5.7 cm. No mass, cortical thickening or hydronephrosis. Spleen: Normal size and echogenicity. Abdominal aorta and IVC are within normal limits. No ascites. US/US abdomen complete* [id number] IMPRESSION: Normal complete abdomen ultrasound.
== END 2021-05-04 10:03 | disposition home or self-care (01) ==
LOC: US 10:05
PROVIDERS: PCP Family Medicine; Visit Provider Obstetrics & Gynecology
DX: R10.31 Right lower quadrant pain (principal)
CPT/HCPCS: 76700

== ENCOUNTER → 2021-05-23 13:58 | Outpatient (BNVA) | payer MEDICAID, SELFPAY | PROVIDERS: PCP Family Medicine; Visit Provider Obstetrics & Gynecology | DX: R32 Unspecified urinary incontinence (principal); N85.4 Malposition of uterus | CPT/HCPCS: 76830 ==

== ENCOUNTER 2021-08-07 15:46 | Inpatient (IN) | payer MEDICAID, SELFPAY ==
[2021-08-07] VITALS (28 sets, daily range): BP systolic 113–158; BP diastolic 46–81; PULSE 0–56; RESP 10–24; TEMP 36.6–36.9; O2SAT 92–98; BMI 37.1
--- NOTE | 2021-08-07 | USCV_ITS ---
Transthoracic Echo Cheryl Gordon Age: 61 Gender: F : 1960 Exam Date: 08/07/2021 20:48 Ordering Phys: Svetlana Altman MD ([email or web address]) Technologist: [email or web address] Exam Location: [facility] Indication: CHB BP: 136 / 56 HR: 36 Rhythm: Other Technical Quality: Adequate MEASUREMENTS (Male / Female) Normal Values 2D ECHO LV Diastolic Diameter PLAX 2.6 cm 4.2 - 5.9 / 3.9 - 5.3 cm LV Systolic Diameter PLAX 1.2 cm IVS Diastolic Thickness 1.1 cm 0.6 - 1.0 / 0.6 - 0.9 cm IVS Systolic Thickness 1.3 cm LVPW Diastolic Thickness 1.0 cm 0.6 - 1.0 / 0.6 - 0.9 cm LVPW Systolic Thickness 2.4 cm LV Ejection Fraction 2D Teich 87.1 % LV Ejection Fraction MOD 2C 73.4 % LV Ejection Fraction 2C AL 73.9 % LA Width 3.7 cm LA Height 4.4 cm DOPPLER AV Peak Velocity 124.3 cm/s LVOT Peak Velocity 115.0 cm/s MV Peak Velocity 107.0 cm/s MV Area PHT 3.0 cm squared Mitral E to A Ratio 0.9 MV E' Velocity 96.0 cm/s FINDINGS Left Ventricle Normal left ventricular size and systolic function. Left ventricular ejection fraction is estimated at 60-65 %. This study is inadequate for assessment of regional wall motion abnormality. Right Ventricle Right ventricle not well visualized. Right Atrium Right atrium not well visualized. Left Atrium Mildly increased left atrial size. Mitral Valve Mildly thickened mitral valve. No mitral valve stenosis. Trace mitral valve regurgitation. Aortic Valve No aortic valve stenosis. No aortic valve regurgitation. Tricuspid Valve Tricuspid valve not well visualized. Pulmonic Valve Pulmonic valve not well visualized. Pericardium No pericardial effusion. Aorta Aorta not well visualized. Normal-sized inferior vena cava. CONCLUSIONS 1. This is a technically difficult study. 2. Normal left ventricular size and systolic function. Left ventricular ejection fraction is estimated at 60-65 %. This study is inadequate for assessment of regional wall motion abnormality. 3. Patient was in complete heart block throughout the study. Repeat study with echo contrast is recommended. 4. Direct comparison to previous study dated 11/18/2020, is not possible due to technically difficult study. Svetlana Altman MD (Electronically Signed) Final Date: 08 August 2021 15:28 S
--- NOTE | 2021-08-07 15:55 | ED_ITS ---
HPI - SOB/Dyspnea General: Chief Complaint: Arrhythmia/Palpitations Stated Complaint: CARDIAC Time Seen by Provider: 08/07/21 15:54 History of Present Illness: HPI Narrative: Ms. Gordon is a 61-year-old lady with past medical history of hypertension, hyperlipidemia, CAD, history of PCI, COPD, diabetes, thyroid disorder who presents to the emergency department due to bradycardia. She reports being at her baseline health without chest pain over the past few days. She was walking at around noon today when she had sudden onset of shortness of breath and lig htheadedness. This has persisted and she noted that her heart rate is low. She denies associated chest pain. Denies similar episodes in the past. Intensity symptoms is moderate to severe when ambulating however minimal when sitting. No other specific changes in health, exacerbating, or alleviating factors identified. EMS attempted 1 mg of atropine without any change in heart rate. Pertinent past history: COPD and other Onset (ago): hour(s) Severity: severe Exacerbating factors: exertion and movement Treatment prior to arrival: other Review of Systems General: Reports: 10 or more systems reviewed and unremarkable except in HPI and below PFSH ED PFSH: Medical History CHB (complete heart block) COPD (chronic obstructive pulmonary disease) managed by [facility] Coronary artery disease Diabetes Fibromyalgia Hyperlipidemia Hypertension Left lower quadrant pain Major depressive disorder No pertinent past medical history neghx: dvt/pe PCP: Dr. Myers Umbilical hernia Surgical History History of appendectomy open lap at 5 y/o History of (~1989) History of eye surgery History of heart artery stent 2 seperate surgeries. [facility] [place] History of tubal ligation Status post biventricular pacemaker Family History Mother Diabetes Hypertension Heart attack Father Hypertension Heart attack Denies family history of Colon cancer Ovarian cancer Breast cancer Uterine cancer Thyroid disease Stroke Physical Exam Const: COMMON NORMALS: alert GENERAL APPEARANCE: cooperative and well developed HENMT: COMMON NORMALS: normocephalic and atraumatic HEAD & SCALP: normocephalic and atraumatic Eye: COMMON NORMALS: conjunctivae normal CONJUNCTIVA: Yes conjunctivae normal SCLERA: sclerae normal Neck/C-Spine: COMMON NORMALS: supple GENERAL: Yes trachea midline Resp: COMMON NORMALS: normal respiratory effort and clear to auscultation bilaterally EFFORT & INSPECTION: Yes able to speak in complete sentences AUSCULTATION: clear to auscultation bilaterally Cardio: COMMON NORMALS: regular rhythm RATE: bradycardic RHYTHM: regular rhythm GI: COMMON NORMALS: Soft to palpation PALPATION: Yes Soft to palpation and No Tenderness to palpation present (GI) PERCUSSION: normal to percussion Extremity: GENERAL: Yes normal exam except as noted and No edema Neuro: COMMON NORMALS: moves all extremities SENSORIUM/ORIENTATION: Yes alert and No Orientation impaired Psych: COMMON NORMALS: mental status grossly normal and Normal thought process present THOUGHT PROCESS: Normal thought process present Course ED course: - Patient was seen and evaluated by me at bedside - Patient placed on cardiac monitors, IV access obtained - Initial evaluation notable for exam as above, bradycardic with adequate blood pressure. Patient with minimal symptoms at rest. Will defer pacing based on exam unless patient decompensates - Labs and xrays personally interpreted by me - Labs notable for no leukocytosis, normal hemoglobin. Metabolic panel without acute electrolyte derangement to explain symptoms. Creatinine is elevated above patient's baseline. Hyperglycemia without evidence of DKA. Transaminitis of unclear significance. Intermediate range 2-hour troponin. - Imaging notable for no lobar consolidation or pneumothorax - Cardiology consulted for ED evaluation of patient - Upon serial reexamination after treatment the patient was similar - Based on patient history, evaluation, and testing as interpreted the most likely cause of the patient's condition is complete heart block - The results of ED evaluation were discussed with the patient including plan for admission due to requirement for level of care not available if discharged to prevent significant worsening/deterioration. -Hospitalist service contacted and agreed to admit the patient - Patient was admitted without further deterioration or significant events. Note: Click bubbles or prepopulated walker in note writing are used for assistance with data collection and billing and are inherently more limited than narrative and other text portions of this note. Please use narrative for additional clinical history and defer to narrative/free test for any case of contradictory information. If information appears in only free text or click bubble it should be considered present or absent as reported. Please contact note commercial real estate underwriter for clarifications of clinical information or contradictory information. MDM is a brief summary, contradictory or erroneous seeming information should be clarified and full note should be reviewed. Vital Signs: Vital signs: Vital Signs Temperature 98.1 F 08/09/21 11:26 Pulse Rate 65 08/09/21 11:26 Respiratory Rate 16 08/09/21 11:26 Blood Pressure 154/60 08/09/21 11:26 Pulse Oximetry 95 08/09/21 11:26 MDM - SOB/Dyspnea Medical Decision Making 61-year-old lady with history of CAD and other comorbidities presenting with bradycardia she is symptomatic with exertion. No changes in medications recently. Patient found to have a complete heart block. Cardiology consulted and patient admitted for definitive management and treatment. Medical Records I reviewed the patient's medical records. Lab Data I reviewed the patient's lab results. : 08/09/21 04:26 08/09/21 04:26 Labs/Radiology: Radiology Impressions Chest X-Ray 08/07/21 15:55 IMPRESSION: No acute findings. C-Arm Fluoroscopy 08/08/21 14:48 IMPRESSION: Images obtained for intraoperative purposes. Laboratory Results WBC 9.1 10^3/uL (4.0-10.0) 08/07/21 15:55 RBC 4.28 10^6/uL (4.1-5.3) 08/07/21 15:55 Hgb 13.2 g/dL (11.5-15.3) 08/07/21 15:55 Hct 40.4 % (37.0-47.0) 08/07/21 15:55 MCV 94.4 fl (81-99) 08/07/21 15:55 MCH 30.8 pg (28.0-34.0) 08/07/21 15:55 MCHC 32.7 g/dL (30.0-36.0) 08/07/21 15:55 RDW 11.8 % (12.1-15.1) L 08/07/21 15:55 Plt Count 190 10^3/cmm (130-400) 08/07/21 15:55 MPV 11.3 fL (7.4-10.4) H 08/07/21 15:55 Neut % (Auto) 57.2 % 08/07/21 15:55 Lymph % (Auto) 33.2 % 08/07/21 15:55 [place] % (Auto) 6.8 % 08/07/21 15:55 Eos % (Auto) 1.8 % 08/07/21 15:55 Baso % (Auto) 0.7 % 08/07/21 15:55 Neut # (Auto) 5.22 10^3/uL (1.8-7.7) 08/07/21 15:55 Lymph # (Auto) 3.0 10^3/uL (0.8-4.8) 08/07/21 15:55 [place] # (Auto) 0.6 10^3/uL (0.2-0.9) 08/07/21 15:55 Eos # (Auto) 0.2 10^3/uL (0.0-0.8) 08/07/21 15:55 Baso # (Auto) 0.1 10^3/uL (0.0-0.1) 08/07/21 15:55 Nucleated RBC % (auto) 0 % 08/07/21 15:55 Nucleated RBCs # 0.0 /100WBC 08/07/21 15:55 Sodium 136 mmol/L (136-145) 08/07/21 15:55 Potassium 4.9 mmol/L (3.5-5.1) 08/07/21 15:55 Chloride 101 mmol/L (98-107) 08/07/21 15:55 Carbon Dioxide 23 mmol/L (22-29) 08/07/21 15:55 Anion Gap 16.9 (5-19) 08/07/21 15:55 BUN 34 mg/dL (6-20) H 08/07/21 15:55 Creatinine 1.1 mg/dL (0.5-0.9) H 08/07/21 15:55 GFR Calculation 50.8 mL/min (90-130) L 08/07/21 15:55 Glucose 244 mg/dL (65-115) H 08/07/21 15:55 Calculated Osmolality 298 mOsm/kg (285-295) H 08/07/21 15:55 Calcium 9.1 mg/dL (8.5-10.5) 08/07/21 15:55 Magnesium 2.3 mg/dL (1.7-2.3) 08/07/21 15:55 Total Bilirubin 0.2 mg/dL (0.15-1.2) 08/07/21 15:55 AST 81 U/L (0-32) H 08/07/21 15:55 ALT 100 U/L (0-33) H 08/07/21 15:55 Alkaline Phosphatase 110 IU/L (35-105) H 08/07/21 15:55 Troponin T Baseline 16 ng/L (0-10) H 08/07/21 15:55 NT-Pro-B Natriuret Pep 195 pg/mL (0-125) H 08/07/21 15:55 Total Protein 5.8 g/dL (6.6-8.7) L 08/07/21 15:55 Albumin 4.0 g/dL (3.5-5.2) 08/07/21 15:55 Globulin 1.8 g/dL (1.3-4.6) 08/07/21 15:55 TSH 1.65 uIU/mL (0.27-4.20) 08/07/21 15:55 EKG Data EKG 1: I personally reviewed and interpreted this EKG as follows: EKG Interpretation Date: 08/07/21 EKG interpretation time: 15:47 Interpretation: Twelve-lead EKG shows a regular rhythm at a rate of 34. TN interval is variable and associated, QRS duration 145, QTc 387. Right axis deviation Interpretation: Complete heart block. Critical Care Time Critical Care Time: Critical Care Time: Yes Total Critical Care Time: 35 Attestation: Due to a high probability of clinically significant, possibly life threatening deterioration, the patient required my highest level of attention and preparedness to intervene emergently and I personally spent this critical care time directly and personally managing the patient. This critical care time included obtaining a history; examining the patient; pulse oximetry; ordering and review of laboratory and imaging studies; arranging urgent treatment with development of a management plan; evaluation of patient's response to treatment; frequent reassessment; and, discussions with other providers as applicable. It was exclusive of separately billable procedures. Primary system involved is cardiac Discharge Plan Discharge Patient Disposition: Admitted As Inpatient Admit Provider: Wilda Ponce Clinical Impression: CHB (complete heart block) Condition: Stable Discharge Diet: Usual diet Discharge Activity: Limit activity as instructed Coding Level of Care Code ED Janitor Caretaker for Chg Fwd Exam Comprehensive
--- NOTE | 2021-08-07 15:55 | XRR_ITS ---
PROCEDURE INFORMATION: Exam: XR Chest Exam date and time: 08/07/2021 3:00 PM Age: 61 years old Clinical indication: Cardiovascular condition or disease; Other: Bradycardia; Prior surgery; Surgery type: Stents TECHNIQUE: Imaging protocol: XR of the chest. Views: 1 view. COMPARISON: CT chest [facility] [id number] 09/05/2020 9:28 AM FINDINGS: Lungs: Unremarkable. No consolidation. Pleural spaces: Unremarkable. No pleural effusion. No pneumothorax. Heart/Mediastinum: Unremarkable. No cardiomegaly. Bones/joints: Unremarkable. XR/XR chest 1V portable [id number] IMPRESSION: No acute findings.
--- NOTE | 2021-08-07 15:56 | ECG_ITS ---
[facility] Test Date: 2021-08-07 Pat Name: Cheryl Gordon Department: Room: Gender: Female Live Out Nanny: : 1960 Requested By: Chemo Padron Order Number: [id number] Jn MD: Jaylyn Forde M.D. Measurements Intervals [place] Rate: 34 P: NJ: QRS: 125 QRSD: 145 T: 3 QT: 491 QTc: 373 Interpretive Statements SINUS RHYTHM WITH HIGH GRADE AV BLOCK INTRAVENTRICULAR CONDUCTION DELAY [130+ ms QRS DURATION] CRITICAL TEST RESULT Compared to ECG 10/19/2018 06:44:34 Intraventricular conduction delay now present T-wave abnormality no longer present Electronically Signed On 08-07-2021 20:25:36 CDT by Jaylyn Forde M.D. [id number]
[2021-08-07 16:06] LABS: Basophils # 0.1 10^3/uL (0.0-0.1); Basophils % 0.7 %; Eosinophils # 0.2 10^3/uL (0.0-0.8); Eosinophils % 1.8 %; Hematocrit 40.4 % (37.0-47.0); Hemoglobin 13.2 g/dL (11.5-15.3); Lymphocytes % 33.2 %; Mean Corpuscular HGB Conc 32.7 g/dL (30.0-36.0); Mean Corpuscular Hemoglobin 30.8 pg (28.0-34.0); Mean Corpuscular Volume 94.4 fl (81-99); Mean Platelet Volume 11.3 fL (7.4-10.4); Monocytes # 0.6 10^3/uL (0.2-0.9); Monocytes % 6.8 %; Neutrophils # 5.22 10^3/uL (1.8-7.7); Neutrophils % 57.2 %; Nucleated Red Blood Cells % 0 %; Platelet Count 190 10^3/cmm (130-400); Red Blood Count 4.28 10^6/uL (4.1-5.3); Red Cell Distribution Width 11.8 % (12.1-15.1); White Blood Count 9.1 10^3/uL (4.0-10.0)
--- NOTE | 2021-08-07 16:32 | PM.CONSULT ---
Providers/Reason For Consult Consulting Physician/Specialty*: Dr. Altman, Cardiology Reason for Consult*: Complete heart block Primary Care Provider: Lesvia Myers MD History of Present Illness History of Present Illness Cheryl Gordon is a 61 year old female with a history of coronary artery disease with stents placed several years ago (1999 and 2008) in [facility] with last LHC in 10/2018 that showed patent stents. She also has obesity, HTN, DM-2, GERD, dyslipidemia, hypothyroidism and CHRIS. She presented with sudden onset SOB and dizziness. She checked her BP and HR. HR was in 30's and hence she came to ER for further evaluation. EKG in ER showed sinus rhythm with complete heart block. Junctional escape rhythm. Non specific ST depression. She complains of dizziness and SOB on ambulation/minimal activity. No chest pain, SOB, presyncope/syncope while at rest. She remains in CHB with junctional rhythm in 30-40's. Review of Systems Const: Denies: fever(s) or chills ENMT: Denies: throat pain, oral sores, nasal discharge or nasal congestion Card: Reports: palpitations and dyspnea on exertion; Denies: chest pain, edema or orthopnea Resp: Denies: dyspnea, productive cough, wheezing or chest congestion GI: Denies: abdominal pain, GI cramping, change in bowel habits or hematochezia : Denies: dysuria or urinary frequency Musc: Denies: extremity pain or extremity swelling Skin/Breast: Denies: rash, pruritus, erythema or sores Neuro: Denies: weakness in extremities or difficulty walking Bello/Lymph: Denies: petechiae or purpura Medications/Allergies Home Medications Medication Instructions Recorded Confirmed Last Taken Type aspirin 81 mg tablet,delayed 81 mg PO DAILY 06/01/19 08/07/21 08/07/21 History release blood-glucose meter (OneTouch #1 each 12/14/19 08/07/21 Unknown Rx Verio Meter) lancets #200 each 12/14/19 08/07/21 Unknown Rx ezetimibe 10 mg tablet 10 mg PO DAILY 05/31/20 08/07/21 08/07/21 History pen needle, diabetic 31 gauge x #400 ea 07/14/20 08/07/21 Unknown Rx 16 (TechLITE Pen Needle) furosemide 40 mg tablet (Lasix) 40 mg PO QAM #90 tab 07/20/20 08/07/21 08/07/21 Rx amlodipine 5 mg tablet 5 mg PO BID #60 tab 12/22/20 08/07/21 08/07/21 Rx paroxetine HCl 40 mg tablet 40 mg PO DAILY #90 tab 01/13/21 08/07/21 08/07/21 Rx nitroglycerin 0.4 mg sublingual See Rx Instructions .ROUTE 01/25/21 08/07/21 Unknown Rx tablet .COMPLEX #25 tab omeprazole 40 mg capsule,delayed 40 mg PO BID #60 cap 02/16/21 08/07/21 08/07/21 Rx release albuterol sulfate 90 mcg/actuation 2 puff INHALATION QID PRN #18 g 03/14/21 08/07/21 Unknown Rx aerosol inhaler (ProAir HFA) oxybutynin chloride 10 mg 10 mg PO DAILY #90 tab 05/08/21 08/07/21 08/07/21 Rx tablet,extended release 24 hr insulin aspart U-100 100 unit/mL 8 unit (0.08 mL) SUBCUT TID #30 ml 05/16/21 08/07/21 08/07/21 Rx (3 mL) subcutaneous pen (Novolog Flexpen U-100 Insulin aspart) blood sugar diagnostic (Blood #100 each 06/01/21 08/07/21 Unknown Rx Glucose Test) insulin detemir U-100 100 unit/mL See Rx Instructions .ROUTE 07/06/21 08/07/21 08/07/21 Rx (3 mL) subcutaneous pen (Levemir .COMPLEX #15 ml FlexTouch U-100 Insulin) atorvastatin 80 mg tablet 80 mg PO DAILY 08/07/21 08/07/21 08/07/21 History carvedilol 6.25 mg tablet 6.25 mg PO BID 08/07/21 08/07/21 08/07/21 History epinephrine 0.3 mg/0.3 mL 0.3 mg IM Q10M PRN 08/07/21 08/07/21 Unknown History injection, auto-injector (EpiPen 2-Tra) levothyroxine 25 mcg tablet 25 mcg PO DAILY 08/07/21 08/07/21 08/07/21 History (Euthyrox) lisinopril 20 mg tablet 20 mg PO DAILY 08/07/21 08/07/21 08/07/21 History trazodone 150 mg tablet 150 mg PO BEDTIME 08/07/21 08/07/21 08/06/21 History Allergies Allergy/AdvReac Type Severity Reaction Status Date / Time amoxicillin Allergy Severe ALGY-Rash Verified 08/07/21 16:25 Iodine and Iodide Containing Allergy Severe ALGY-Hives Verified 08/07/21 16:25 Produc losartan Allergy Severe Unknown Verified 08/07/21 16:25 metformin Allergy Severe ALGY-Rash Verified 08/07/21 16:25 pregabalin [From Lyrica] Allergy Severe ADR-Itching Verified 08/07/21 16:25 morphine AdvReac Severe Hyper Verified 08/07/21 16:25 simvastatin AdvReac Severe ADR-Itching Verified 08/07/21 16:25 PFSH Acute PFSH: Medical History (Updated 08/07/21 @ 21:15 by Svetlana Altman MD) COPD (chronic obstructive pulmonary disease) managed by [facility] Diabetes Fibromyalgia Hyperlipidemia Hypertension Left lower quadrant pain Major depressive disorder No pertinent past medical history neghx: dvt/pe PCP: Dr. Myers Umbilical hernia Surgical History History of appendectomy open lap at 5 y/o History of (~1989) History of eye surgery History of heart artery stent 2 seperate surgeries. [facility] History of tubal ligation Family History Mother Diabetes Hypertension Heart attack Father Hypertension Heart attack Denies family history of Colon cancer Ovarian cancer Breast cancer Uterine cancer Thyroid disease Stroke Vitals/I&O/Wt Last Vital Signs Temp 97.8 F 08/07/21 15:48 Pulse 45 L 08/07/21 15:48 Resp 19 H 08/07/21 15:48 BP 145/72 08/07/21 15:48 Pulse Ox 96 08/07/21 15:48 Weight last 48 hrs Weight 230 lb Physical Exam Narrative: GENERAL: obese woman laying in bed in no acute distress HEENT: Extraocular movement intact. No pallor or icterus. NECK: No JVD, No carotid bruit. CARDIOVASCULAR SYSTEM: S1-S2 regular. bradycardia+ No murmur or gallops. RESPIRATORY SYSTEM: Chest clear to auscultation. No wheezes rhonchi or rubs heard. No use of accessory muscles. ABDOMEN: Soft, nontender and nondistended. Normal bowel sounds present. EXTREMITIES: No cyanosis or edema. No signs of chronic venous insufficiency. 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 No focal neurological deficits. SKIN: Normal turgor and temperature. PSYCH: Normal insight and judgment. Data : 08/07/21 15:55 08/07/21 15:55 Other data: TTE (11/18/2020) CONCLUSIONS ?1-Normal left ventricular cavity size. Normal left ventricular ?systolic function. No regional wall motion abnormalities. Left ?ventricular ejection fraction is estimated at 60 %. Grade I/IV ?diastolic dysfunction (abnormal relaxation filling pattern), ?normal to mildly elevated filling pressures. ?2-No significant valve abnormalities. ?3-There is no pericardial effusion. ?4-Pulmonary artery systolic pressure is within normal limits. ?5-Right atrial pressure is around 5 mm of mercury. ?6-Due to poor quality images in the prior study cannot draws a ?comparison Coronary angiogram (10/19/2018) Diagnostic Cath Status: Elective Diagnostic Findings Patient with known coronary artery disease and previous stents with multiple risk factors now admitted twice in 5 days with chest pain. Troponins and EKGs are normal. Continues to have chest discomfort despite medical therapy. Coronary angiography reveals mild diffuse plaquing but no significant stenoses. Previously placed stents in the LAD are widely patent. No significant disease noted in the Left Main, LAD, Circumflex, or RCA coronary arteries. Coronary angiography shows right dominance. Conclusions Nonobstructive coronary artery disease with patent stents. Normal LV function. No significant disease noted in the Left Main, LAD, Circumflex, or RCA coronary arteries. Anterior and inferior canales are normal. Normal left ventricular systolic function. Ejection fraction of 65%. A&P Assessment and plan (1) CHB (complete heart block): -on coreg at home. -No recent dose change and denies any accidental overdose. -atropine administered by EMS. -will start on low dose dopamine and start on IV fluids -plan for echo. -trend troponins -will probably need [facility]/ [facility] pacer based on clinical progression. Status: Acute (2) Coronary artery disease: Status: Acute (3) Hypertension: Status: Acute Qualifiers: Hypertension type: unspecified Qualified Code(s): I10 - Essential (primary) hypertension (4) Hyperlipidemia: Status: Acute Qualifiers: Hyperlipidemia type: mixed hyperlipidemia Qualified Code(s): E78.2 - Mixed hyperlipidemia (5) Diabetes: Status: Acute Plan URI Elevated liver enzymes Hypothyroidism GERD Thank you for allowing me to participate in patient's care. Please feel free to call with questions or concerns. Consult Attestations Time Spent in Patient Care: Greater than 35 minutes (>than 50% of time spent in counselling and/or direct pt care on unit). Critical Care Time: The high probability of a clinically significant, sudden or life threatening deterioration of the patient's [cardiac] system(s) required my full and direct attention, intervention and personal management. The critical care time is as shown. This time is in addition to time spent performing any reported procedures but includes the following: [x] Data and vital sign review and interpretation [x] Patient assessment, examination and intervention [x] Documentation [x] Medication orders and management Critical Care Time (min): 45 Coding Level of Care Code New Pt Acute Lead Sprinkler for Chg Fwd Patient Type New History Comprehensive Exam Comprehensive Medical Decision Making High Complexity Diagnoses CHB (complete heart block) I44.2 Coronary artery disease I25.10 Hypertension I10 Hypertension type: unspecified Hyperlipidemia E78.2 Hyperlipidemia type: mixed hyperlipidemia Diabetes E11.9
[2021-08-07 16:49] LABS: Troponin(5th) Baseline 16 ng/L (0-10)
[2021-08-07 16:59] LABS: Alanine Aminotransferase 100 U/L (0-33); Alkaline Phosphatase 110 IU/L (35-105); Anion Gap 16.9 (5-19); Aspartate Amino Transferase 81 U/L (0-32); Blood Urea Nitrogen 34 mg/dL (6-20); Calcium 9.1 mg/dL (8.5-10.5); Carbon Dioxide 23 mmol/L (22-29); Chloride 101 mmol/L (98-107); Globulin 1.8 g/dL (1.3-4.6); Glomerular Filtration Rate 50.8 mL/min (90-130); Glucose 244 mg/dL (65-115); Magnesium 2.3 mg/dL (1.7-2.3); NT Pro B Type Natriuretic Pept 195 pg/mL (0-125); Osmolality Calculated 298 mOsm/kg (285-295); Potassium 4.9 mmol/L (3.5-5.1); Sodium 136 mmol/L (136-145); Thyroid Stimulating Hormone 1.65 uIU/mL (0.27-4.20); Total Bilirubin 0.2 mg/dL (0.15-1.2); Total Protein 5.8 g/dL (6.6-8.7)
--- NOTE | 2021-08-07 17:03 | PC.NURSE ---
Cardiology @BS discussing POC w pt
--- NOTE | 2021-08-07 17:43 | P.HP_ITS ---
Providers/Chief Complaint Primary Care Provider: Lesvia Myers MD Chief Complaint: CARDIAC History of Present Illness Cheryl Gordon is a 61 year old female with established coronary disease presented to the hospital chief complaint of dizziness and shortness of breath. Patient stating that her symptoms started acutely yesterday when she was trying to walk from her bedroom to the bathroom. When she started feeling short of breath along her dizziness she checked her blood pressure and heart rate. Her heart rate was in 30s at that time she knew that she needed to come to the hospital for further evaluation. In the ER she was diagnosed with complete heart block, EMS gave her a dose of atropine which did not relieve her symptoms or improved her heart rate. She was noncompliant of any chest pain, no orthopnea, PND, fever, diarrhea. No syncopal event. Cardiology evaluated her in the ER recommended pacemaker and coronary angiogram. Dopamine was added and she was transferred to ICU Review of Systems Const: Denies: chills Eyes: Denies: change in vision ENMT: Denies: throat pain Card: Reports: lightheadedness, pre-syncope and dyspnea on exertion Resp: Reports: dyspnea GI: Denies: abdominal pain Skin/Breast: Denies: rash Neuro: Denies: headache(s) Psych: Denies: anxiety Endo: Denies: polyuria Bello/Lymph: Denies: easy bruising All/Imm: Denies: urticaria Medications/Allergies Home Medications Medication Instructions Recorded Confirmed Last Taken Type aspirin 81 mg tablet,delayed 81 mg PO DAILY 06/01/19 08/07/21 08/07/21 History release blood-glucose meter (OneTouch #1 each 12/14/19 08/07/21 Unknown Rx Verio Meter) lancets #200 each 12/14/19 08/07/21 Unknown Rx ezetimibe 10 mg tablet 10 mg PO DAILY 05/31/20 08/07/21 08/07/21 History pen needle, diabetic 31 gauge x #400 ea 07/14/20 08/07/21 Unknown Rx /16 (TechLITE Pen Needle) furosemide 40 mg tablet (Lasix) 40 mg PO QAM #90 tab 07/20/20 08/07/21 08/07/21 Rx amlodipine 5 mg tablet 5 mg PO BID #60 tab 12/22/20 08/07/21 08/07/21 Rx paroxetine HCl 40 mg tablet 40 mg PO DAILY #90 tab 01/13/21 08/07/21 08/07/21 Rx nitroglycerin 0.4 mg sublingual See Rx Instructions .ROUTE 01/25/21 08/07/21 Unknown Rx tablet .COMPLEX #25 tab omeprazole 40 mg capsule,delayed 40 mg PO BID #60 cap 02/16/21 08/07/21 08/07/21 Rx release albuterol sulfate 90 mcg/actuation 2 puff INHALATION QID PRN #18 g 03/14/21 08/07/21 Unknown Rx aerosol inhaler (ProAir HFA) oxybutynin chloride 10 mg 10 mg PO DAILY #90 tab 05/08/21 08/07/21 08/07/21 Rx tablet,extended release 24 hr insulin aspart U-100 100 unit/mL 8 unit (0.08 mL) SUBCUT TID #30 ml 05/16/21 08/07/21 08/07/21 Rx (3 mL) subcutaneous pen (Novolog Flexpen U-100 Insulin aspart) blood sugar diagnostic (Blood #100 each 06/01/21 08/07/21 Unknown Rx Glucose Test) insulin detemir U-100 100 unit/mL See Rx Instructions .ROUTE 07/06/21 08/07/21 08/07/21 Rx (3 mL) subcutaneous pen (Levemir .COMPLEX #15 ml FlexTouch U-100 Insulin) atorvastatin 80 mg tablet 80 mg PO DAILY 08/07/21 08/07/21 08/07/21 History carvedilol 6.25 mg tablet 6.25 mg PO BID 08/07/21 08/07/21 08/07/21 History epinephrine 0.3 mg/0.3 mL 0.3 mg IM Q10M PRN 08/07/21 08/07/21 Unknown History injection, auto-injector (EpiPen 2-Tra) levothyroxine 25 mcg tablet 25 mcg PO DAILY 08/07/21 08/07/21 08/07/21 History (Euthyrox) lisinopril 20 mg tablet 20 mg PO DAILY 08/07/21 08/07/21 08/07/21 History trazodone 150 mg tablet 150 mg PO BEDTIME 08/07/21 08/07/21 08/06/21 History Allergies Allergy/AdvReac Type Severity Reaction Status Date / Time amoxicillin Allergy Severe ALGY-Rash Verified 08/07/21 16:25 Iodine and Iodide Containing Allergy Severe ALGY-Hives Verified 08/07/21 16:25 Produc losartan Allergy Severe Unknown Verified 08/07/21 16:25 metformin Allergy Severe ALGY-Rash Verified 08/07/21 16:25 pregabalin [From Lyrica] Allergy Severe ADR-Itching Verified 08/07/21 16:25 morphine AdvReac Severe Hyper Verified 08/07/21 16:25 simvastatin AdvReac Severe ADR-Itching Verified 08/07/21 16:25 PFSH Acute PFSH: Medical History COPD (chronic obstructive pulmonary disease) managed by [facility] Diabetes Fibromyalgia Hyperlipidemia Hypertension Left lower quadrant pain Major depressive disorder No pertinent past medical history neghx: dvt/pe PCP: Dr. Myers Umbilical hernia Surgical History History of appendectomy open lap at 5 y/o History of (~1989) History of eye surgery History of heart artery stent 2 seperate surgeries. [facility] History of tubal ligation Family History Mother Diabetes Hypertension Heart attack Father Hypertension Heart attack Denies family history of Colon cancer Ovarian cancer Breast cancer Uterine cancer Thyroid disease Stroke Vitals/I&O/Wt Last Vital Signs Temp 97.8 F 08/07/21 15:48 Pulse 44 L 08/07/21 17:00 Resp 18 08/07/21 17:00 BP 136/71 08/07/21 17:00 Pulse Ox 94 08/07/21 17:00 Weight last 48 hrs Weight 104.326 kg Physical Exam Narrative: Patient is very pleasant cooperative female Hemodynamically stable Heart rate in 30s No active chest pain S1, S2 Nonfocal neuro exam Abdomen is soft No audible stridor or wheezing no active distress Data : 08/08/21 04:09 08/08/21 04:09 A&P Assessment and plan (1) CHB (complete heart block): Status: Acute Plan Symptomatic bradycardia Complete heart block Cardiology consulted Hold coreg check tsh troponin and ekg series check magnesium level Dopamine started in ICU Monitor heart rhythm and symptoms of life Should be kept n.p.o. 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
--- NOTE | 2021-08-07 17:56 | ECG_ITS ---
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 Measurements Intervals Mathias Rate: 32 P: [place]: QRS: 113 QRSD: 124 T: -3 QT: 508 QTc: 375 Interpretive Statements Third-degree heart block Possible slow junctional escape rhythm sinus rhythm no longer present Intraventricular conduction delay no longer present Electronically Signed On 08-07-2021 20:41:01 CDT by Jaylyn Forde M.D. [email or web address]
[2021-08-07 18:41] LABS: Troponin 5 2HR 21.31 ng/L (0-10)
[2021-08-07 18:42] LABS: Troponin 5 2HR Delta 5.31 ABS# (0-10)
[2021-08-07 21:13] LABS: Glucose Point of Care 99 mg/dL (70-110)
[2021-08-07] MEDS: DOPamine drip 400 MG/250 ML PREMIX 19.56 MG IV (21:35)
[2021-08-07] MEDS: sodium chloride 0.9% 1,000 ML 75 ML IV (21:39)
[2021-08-07 22:17] LABS: Troponin 5 6HR 19.63 ng/L (0-10); Troponin 5 6HR Delta 3.63 ng/L (0-12)
[2021-08-08] VITALS (76 sets, daily range): BP systolic 98–175; BP diastolic 47–75; PULSE 30–85; RESP 7–22; TEMP 36.3–37; O2SAT 90–100
--- NOTE | 2021-08-08 | SCC_ITS ---
Procedure done: Dual-chamber pacemaker implantation 364.3 seconds of fluoroscopic guidance, for a cumulative dose of 244.17 mGy, was provided to Dr. Sun by the radiology department. C-arm images of the chest were saved for the patient's permanent record. [facility]
--- NOTE | 2021-08-08 | USCV_ITS ---
Cheryl Gordon Age: 61 Gender: F : 1960 Exam Date: 08/08/2021 12:16 Ordering Phys: Svetlana Altman MD ([email or web address]) Technologist: Laina Perez [place] [facility] [place]: Complete heart block BP: 132 / 58 HR: 61 Rhythm: Sinus Technical Quality: Good MEASUREMENTS (Male / Female) Normal Values 2D ECHO LV Chamber Size 3.6 cm RV Chamber Size 2.8 cm LV Ejection Fraction MOD 2C 18.9 % LV Ejection Fraction 2C AL 17.2 % LA Width 3.2 cm LA Height 3.8 cm RA Width 3.2 cm RA Height 3.3 cm FINDINGS Left Ventricle Normal left ventricular cavity size. Normal left ventricular wall thickness. Normal left ventricular systolic function. Left ventricular ejection fraction is estimated at 70 %. No regional wall motion abnormalities. Right Ventricle Normal right ventricular size and systolic function. Right Atrium Normal right atrial size. Left Atrium Normal left atrial size. Mitral Valve Structurally normal mitral valve. Trace mitral valve regurgitation. Aortic Valve Aortic valve not well visualized. Tricuspid Valve Structurally normal tricuspid valve. Pulmonic Valve Pulmonic valve not well visualized. Pericardium No pericardial effusion. Aorta Aorta not well visualized. CONCLUSIONS 1. This is a limited study for assessment of LV function and regional wall motion abnormality. Ultrasound enhancing agent Optison was used per protocol. 2. Normal left ventricular cavity size, wall thickness and systolic function. Left ventricular ejection fraction is estimated at 70%. No regional wall motion abnormalities. 3. Normal right ventricular size and systolic function. Svetlana Altman MD (Electronically Signed) Final Date: 08 August 2021 16:37 S
--- NOTE | 2021-08-08 04:01 | PC.NURSE ---
This RN called Jaron at 2003 and left voicemail for MD seeking clarification. MD informed of pt heart rate ranging between 25 and 35 bpm and new tingling in her bilateral upper extremities. MD returned call around 2119 to inform RN of new orders and provide parameters. At 2134 this RN started dopamine (see jul) within the next 10 min pt complained of feeling SOB, light headed, dizzy and sick to her stomach. dopamine was stopped (2143) and within a few minutes patient's states she is feeling much better. MD was called at 2149 to be informed of pt's symptoms and that dopamine was stopped. voicemail left.
[2021-08-08 05:13] LABS: Basophils # 0.1 10^3/uL (0.0-0.1); Basophils % 1.1 %; Eosinophils # 0.2 10^3/uL (0.0-0.8); Eosinophils % 2.5 %; Hematocrit 41.8 % (37.0-47.0); Hemoglobin 13.2 g/dL (11.5-15.3); Lymphocytes # 2.9 10^3/uL (0.8-4.8); Lymphocytes % 39.1 %; Mean Corpuscular HGB Conc 31.6 g/dL (30.0-36.0); Mean Corpuscular Hemoglobin 30.7 pg (28.0-34.0); Mean Corpuscular Volume 97.2 fl (81-99); Mean Platelet Volume 11.5 fL (7.4-10.4); Monocytes # 0.5 10^3/uL (0.2-0.9); Monocytes % 6.6 %; Neutrophils # 3.69 10^3/uL (1.8-7.7); Neutrophils % 50.4 %; Nucleated Red Blood Cells % 0 %; Platelet Count 168 10^3/cmm (130-400); Red Cell Distribution Width 11.9 % (12.1-15.1); White Blood Count 7.3 10^3/uL (4.0-10.0)
[2021-08-08 05:37] LABS: Blood Urea Nitrogen 30 mg/dL (6-20); Calcium 8.9 mg/dL (8.5-10.5); Carbon Dioxide 19 mmol/L (22-29); Chloride 111 mmol/L (98-107); Glomerular Filtration Rate 85.6 mL/min (90-130); Glucose 101 mg/dL (65-115); Osmolality Calculated 298 mOsm/kg (285-295); Sodium 141 mmol/L (136-145)
[2021-08-08 05:40] LABS: Anion Gap 15.6 (5-19); Potassium 4.6 mmol/L (3.5-5.1)
[2021-08-08 07:44] LABS: Glucose Point of Care 108 mg/dL (70-110)
[2021-08-08] MEDS: levothyroxine 25 mcg Tablet PO (08:16)
[2021-08-08] MEDS: aspirin 325 mg Tablet PO (08:16)
[2021-08-08] MEDS: atorvastatin 40 mg Tablet 80 MG PO (08:16)
--- NOTE | 2021-08-08 08:16 | XACV_ITS ---
Exam Room: 1 Ht: 168 cm Wt: 104 kg BSA: 2.25 m2 Gender: Female : 1960 Any Known Allergies: Other Exam Priority: Routine Procedure(s): Procedure Description: Diagnostic procedure Procedure Description: Miscellaneous Procedure Description: Temporary Pacemaker Insertion Procedure Description: Angio-Seal Procedure Description: Coronary Angiography Diagnostic Cath Status: Urgent Diagnostic Findings * 61 year old female with a history of coronary artery disease with stents placed several years ago (1999 and 2008) in [facility] with last LHC in 10/2018 that showed patent stents. She also has obesity, HTN, DM-2, GERD, dyslipidemia, hypothyroidism and CHRIS. She presented to ER with SOB with minimal activity and dizziness and HR in 30's. EKG sinus rhythm with complete heart block with junctional escape rhythm. Non specific ST depression. * Temporary venous pacemaker was placed via left femoral access by Dr. Barnard. * Angiography shows a right coronary dominant system. * Coronary angiography shows no disease in the left main artery, mild disease in the left anterior descending artery, no disease in the circumflex artery and mild disease in the right coronary artery. Patent proximal LAD and distal RCA stents. Conclusions 1. Cardiac Catheterization study revealed no significant coronary disease. Patent LAD and RCA stents.. Recommendations * Statin and aspirin 81mg lifelong, if tolerated. * Return to inpatient for close monitoring and routine cath care. * Dr. Sun consulted for dual-chamber permanent pacemaker placement. Pressures Phase:Rest AO : 124 / 58 ( 84 ) @ 10:51:00 AM Clinical Evaluation EBL: 5mL-10mL Procedural Details Admit Source: In Patient. Pre-Procedure Time Out. Identified patient by full name and date of as verbalized by the patient/guarantor. Does the consent match the physician's order: Yes. Accurate & Complete Informed Consent: Yes. Inpatient/Outpatient History & Physical on Chart: Yes. If H&P is completed, is and addenduem needed: N/A; If yes, is the addendum complete: N/A. Visualize and Verify Site with Patient/Guarantor: N/A. Relevant Radiology Images available: N/A. Pre-op teaching completed and patient verbalized understanding. The risks, benefits, and alternatives of sedation and/or procedure were discussed by physician. The patient agrees to continue. Procedure started. [facility] Clinical Fraility Score: 4: Vulnerable. Dinkey Mechanic Indications: New Onset Angina. Chest Pain Symptom Assessment: Atypical Angina. Correct patient, site and procedure confirmed by cath team. Current diagnosis: Chest Pain. PERRLA. Strong, equal hand skid man bilaterally. Lungs clear x 5 lobes. IV Site on Arrival: 20 gauge in the right anticubital. IV Site on Arrival: 20 gauge in the left anticubital. IV Fluids: D5/.45% NaCl at KVO. mL infused prior to laborer pole crew. IV Fluids: 0.9% NaCl at KVO. 800 mL infused prior to laborer pole crew. Oxygen started at 2liters/min via nasal canula. right groin was prepped with chloroprep then draped in the usual sterile fashion. left groin was prepped with chloroprep then draped in the usual sterile fashion. Physician notified. Baseline sample Acquired. HR: 52 BPM. Physician arrived. Physician scrubbed in. Immediate Pre-Procedure Time Out. Correct Patient: Yes; Correct Procedure: Yes; Correct Site: Yes; Correct Patient Position: Yes; Correct Supplies: Yes; Dried Flammable Prep: Yes; Blood Products Available: N/A;. Lidocaine 1% infiltrated to the right groin. Arterial access obtained with micropuncture set. Lidocaine 1% infiltrated to the right groin. Unable to obtain venous access in the right femoral vein despite using Ultrasound guidance. A 5 [place] JL4 catheter in over wire. Catheter out. left groin was prepped with chloroprep then draped in the usual sterile fashion. Lidocaine 1% infiltrated to the left groin. Arterial access obtained with micropuncture set. TPM inserted. mA=5/HR=60. A 5 [place] JL4 catheter in over wire. Multiple views taken of left coronary artery. Catheter removed over the standard wire. A 5 [place] JR4 catheter in over wire. Catheter removed over the standard wire. A 5 [place] 3DRC catheter in over wire. Multiple views taken of right coronary artery. Catheter removed over the standard wire. mA decreased to 3. A Right femoral angiogram was performed to determine safe placement of closure device. Angioseal placed without complications. No signs or symptoms of hematoma noted. Sterile dressing applied per usual sterile fashion. LOT #[id number]. EXP 2022-04-18. A Angio-Seal VIP ([place]) was successful obtaining hemostatsis at the Right Femoral artery insertion site. A Suture was successful obtaining hemostatsis at the Left Femoral vein insertion site. Post Procedure: Pulses reassessed and unchanged. PERRLA. Strong, equal hand skid man bilaterally. No VTE prophylaxis required. Medication's Wasted: Lidocaine 1% = 12 mL. Medication's Wasted: Heparin = 1000 units. Post-op diagnosis: Normal coronaries/TPM insertion for CHB. Complications: none. Estimated blood loss: 5mL-10mL. Responsiveness - Normal response to verbal stimuli; alert and oriented, PERRLA. Airway - Unaffected, no intervention required; spontaneous ventilation. Circulation: W/N/L, pulses unchanged. Nausea/Vomiting: No. Patient transferred by bed to ICU. Evelin Zepeda RN was relieved by Ignacia Ortez RN, [facility] as monitoring person. Procedure completed. Vital chart was stopped. Access Site Site: Right Femoral artery Sheath Size: 6 Fr Hemostasis Method: Angio-Seal VIP ([place]) Hemostasis Success: Successful Site: Left Femoral vein Sheath Size: 6 Fr Hemostasis Method: Suture Hemostasis Success: Successful Procedure Medications Start: 9:07 AM Stop: 9:07 AM Medication: Versed Amount: 1 mg Route: I.V. Start: 9:07 AM Stop: 9:07 AM Medication: Fentanyl Amount: 50 mcg Route: I.V. Start: 9:42 AM Stop: 9:42 AM Medication: Versed Amount: 1 mg Route: I.V. I, the attending physician, have reviewed and verified all procedure medications. Yes, all medications given per verbal order History/Risk Factors Hypertension: Yes Dyslipidemia: Yes Peripheral Arterial Disease (PAD): No Myocardial Infarction (KS): No Obesity: Yes Renal Disease: No Prior Interventions PCI: Yes Valve Surgery: No Date of PCI: 10/18/2018 Report Signatures Finalized by Svetlana Altman MD on 08/14/2021 10:37 AM
--- NOTE | 2021-08-08 08:20 | W.PM.OPSUD ---
Surgery/Procedure H&P Update DATE OF PROCEDURE: August 08, 2021 DATE H&P PERFORMED: 02/29/20 PREOP DIAGNOSIS: Complete heart block, atypical chest pain PRIMARY INDICATION FOR PROCEDURE: Complete heart block and atypical chest pain with shortness of breath PLANNED PROCEDURE: Left heart cathetarization; temporary venous pacemaker PATIENT REASSESSED PRIOR TO SEDATION, WITH NO CHANGE NOTED: Yes PHYSICAL EXAM: alert, oriented x 3, clear to auscultation bilaterally and regular rate & rhythm AIRWAY EVAL/ANESTHESIA PLAN: normal airway, ASA III, Monitored Anesthesia, Local Anesthesia, Risks, benefits & alternatives of sedation and/or procedure discussed and Patient agrees to continue as planned
[2021-08-08] MEDS: famotidine 20 mg/2 mL INJ IVP (08:37)
[2021-08-08] MEDS: diphenhydrAMINE 50 mg/mL SDV 1mL IVP (08:37)
[2021-08-08 08:39] LABS: Alanine Aminotransferase 69 U/L (0-33); Albumin Level 3.4 g/dL (3.5-5.2); Alkaline Phosphatase 101 IU/L (35-105); Aspartate Amino Transferase 45 U/L (0-32); Globulin 2.4 g/dL (1.3-4.6); Total Bilirubin 0.2 mg/dL (0.15-1.2); Total Protein 5.8 g/dL (6.6-8.7)
[2021-08-08] MEDS: ondansetron 2 mg/ML SDV 2 mL 4 MG IVP (10:29)
--- NOTE | 2021-08-08 12:12 | PM.PN ---
Subjective Subjective: Overnight patient experienced worsening of shortness of breath and PVCs, dopamine was discontinued Heart rate remained in the 30s Blood pressure is stable This morning she is going for coronary angiogram, tomorrow plan for pacemaker placement Vitals/I&O/Wt Last Vital Signs Temp 98.5 F 08/08/21 04:00 Pulse 33 L 08/08/21 08:45 Resp 16 08/08/21 08:45 BP 175/59 08/08/21 09:00 Pulse Ox 94 08/08/21 08:45 08/07/21 08/08/21 08/08/21 22:59 06:59 14:59 Intake Total 2.934 / 2.934 0 / 0 Output Total 775 / 775 Balance 2.934 / 2.934 -775 / -775 Weight last 48 hrs Weight 104.326 kg Weight 104.326 kg Physical Exam Narrative: Patient resting comfortably No active chest pain Heart rate in 30s S1, S2 Euvolemic Nonfocal neuro exam Saturating well on room air Abdomen is soft No active joint swelling No skin rash Urinary Catheter Management: De Jesus: Cath Placed During This Visit: yes Urinary Catheter Date of Insertion: 08/08/21 Urinary Catheter Time of Insertion: 08:10 Data : 08/08/21 04:09 08/08/21 04:09 A&P Assessment and plan (1) Diabetes: Status: Acute (2) CHB (complete heart block): Status: Acute Plan Complete heart block Coronary angiogram unremarkable Plan for pacemaker placement tomorrow N.p.o. after midnight Hold anticoagulating agent as DVT prophylaxis SCDs for now No severe electrolyte imbalance Coreg is on hold heart rate still in 30s with complete heart block pattern Cardiology team has updated me regarding the plan She can have cardiac diet after angiogram today Attestations Medical Necessity Statement*: Pacemaker placement tomorrow Time Spent in Patient Care: 30mins Coding Level of Care Code Acute Emergency Response Coordinator for Kayleigh Fwtori Diagnoses Diabetes E11.9 CHB (complete heart block) I44.2
[2021-08-08 12:50] LABS: Glucose Point of Care 159 mg/dL (70-110)
--- NOTE | 2021-08-08 13:10 | ANES.PREANE2 ---
Pre-Anesthetic Assessment Height/Weight: Height 1.68 m Weight 104.326 kg Temp Pulse Resp BP Pulse Ox 98.5 F 62 14 132/58 91 08/08/21 04:00 08/08/21 12:30 08/08/21 12:30 08/08/21 12:30 08/08/21 12:30 Preop Diagnosis: Complete heart block, atypical chest pain Operation Date: 08/08/21 09:00 Proposed Procedures p Cardiac Catheterization(Not Applicable) - Svetlana Altman MD Familial anesthetic complications: none Was Beta Calixto taken within 24 hours: N/A Was Clonidine taken within 24 hours: N/A Last intake: . 8hrs Social No alcohol and No tobacco Exam alert, oriented x 3, clear to auscultation bilaterally and regular rate & rhythm temporary pacing Airway Mallampati: Class II Dentition: chipped Pulmonary Chronic Obstructive Pulmonary Disease CV/HEM Arrythmia, Coronary Artery Disease and Hypertension Metabolic Diabetes Mellitus, Morbid Obesity and Thyroid Disease Anesthetic Plan ASA status: 4 Anesthesia: MAC Risk of > 500 ml blood loss (7ml/kg in children): No Medications/Allergies Home Medications Medication Instructions Recorded Confirmed Last Taken Type aspirin 81 mg tablet,delayed 81 mg PO DAILY 06/01/19 08/07/21 08/07/21 History release blood-glucose meter (OneTouch #1 each 12/14/19 08/07/21 Unknown Rx Verio Meter) lancets #200 each 12/14/19 08/07/21 Unknown Rx ezetimibe 10 mg tablet 10 mg PO DAILY 05/31/20 08/07/21 08/07/21 History pen needle, diabetic 31 gauge x #400 ea 07/14/20 08/07/21 Unknown Rx 5/16 (TechLITE Pen Needle) furosemide 40 mg tablet (Lasix) 40 mg PO QAM #90 tab 07/20/20 08/07/21 08/07/21 Rx amlodipine 5 mg tablet 5 mg PO BID #60 tab 12/22/20 08/07/21 08/07/21 Rx paroxetine HCl 40 mg tablet 40 mg PO DAILY #90 tab 01/13/21 08/07/21 08/07/21 Rx nitroglycerin 0.4 mg sublingual See Rx Instructions .ROUTE 01/25/21 08/07/21 Unknown Rx tablet .COMPLEX #25 tab omeprazole 40 mg capsule,delayed 40 mg PO BID #60 cap 02/16/21 08/07/21 08/07/21 Rx release albuterol sulfate 90 mcg/actuation 2 puff INHALATION QID PRN #18 g 03/14/21 08/07/21 Unknown Rx aerosol inhaler (ProAir HFA) oxybutynin chloride 10 mg 10 mg PO DAILY #90 tab 05/08/21 08/07/21 08/07/21 Rx tablet,extended release 24 hr insulin aspart U-100 100 unit/mL 8 unit (0.08 mL) SUBCUT TID #30 ml 05/16/21 08/07/21 08/07/21 Rx (3 mL) subcutaneous pen (Novolog Flexpen U-100 Insulin aspart) blood sugar diagnostic (Blood #100 each 06/01/21 08/07/21 Unknown Rx Glucose Test) insulin detemir U-100 100 unit/mL See Rx Instructions .ROUTE 07/06/21 08/07/21 08/07/21 Rx (3 mL) subcutaneous pen (Levemir .COMPLEX #15 ml FlexTouch U-100 Insulin) atorvastatin 80 mg tablet 80 mg PO DAILY 08/07/21 08/07/21 08/07/21 History carvedilol 6.25 mg tablet 6.25 mg PO BID 08/07/21 08/07/21 08/07/21 History epinephrine 0.3 mg/0.3 mL 0.3 mg IM Q10M PRN 08/07/21 08/07/21 Unknown History injection, auto-injector (EpiPen 2-Tra) levothyroxine 25 mcg tablet 25 mcg PO DAILY 08/07/21 08/07/21 08/07/21 History (Euthyrox) lisinopril 20 mg tablet 20 mg PO DAILY 08/07/21 08/07/21 08/07/21 History trazodone 150 mg tablet 150 mg PO BEDTIME 08/07/21 08/07/21 08/06/21 History Allergies Allergy/AdvReac Type Severity Reaction Status Date / Time amoxicillin Allergy Severe ALGY-Rash Verified 08/07/21 16:25 Iodine and Iodide Containing Allergy Severe ALGY-Hives Verified 08/07/21 16:25 Produc losartan Allergy Severe Unknown Verified 08/07/21 16:25 metformin Allergy Severe ALGY-Rash Verified 08/07/21 16:25 pregabalin [From Lyrica] Allergy Severe ADR-Itching Verified 08/07/21 16:25 morphine AdvReac Severe Hyper Verified 08/07/21 16:25 simvastatin AdvReac Severe ADR-Itching Verified 08/07/21 16:25 Current Medications Generic Name Dose Route Start Last Admin Trade Name Freq PRN Reason Stop Dose Admin Atorvastatin Calcium 80 mg 08/08/21 09:00 08/08/21 08:16 Atorvastatin 40 Mg Tablet PO 80 mg DAILY NARESH Administration Dopamine HCl/Dextrose 400 mg in 250 mls @ 19.561 mls/hr 08/07/21 21:15 08/07/21 21:44 Intropin Drip IV 0 mcg/kg/min CONT NARESH 0 mls/hr Titration Protocol 5 MCG/KG/MIN Insulin Human Lispro 0 unit 08/08/21 08:00 08/08/21 12:49 Insulin Lispro 100 Unit/1 Ml SUBCUT Not Given TIDWM NARESH Protocol Levothyroxine Sodium 25 mcg 08/08/21 09:00 08/08/21 08:16 Levothyroxine 25 Mcg Tablet PO 25 mcg DAILY NARESH Administration Ondansetron HCl 4 mg 08/07/21 18:42 08/08/21 10:29 Ondansetron 2 Mg/Ml Sdv 2 Ml IVP 4 mg Q6H PRN Administration NAUSEA AND VOMITING Trazodone HCl 150 mg 08/07/21 21:00 08/07/21 21:28 Trazodone 150 Mg Tablet PO Not Given BEDTIME NARESH PFSH Anesthesia Medical History COPD (chronic obstructive pulmonary disease) managed by [facility] Diabetes Fibromyalgia Hyperlipidemia Hypertension Left lower quadrant pain Major depressive disorder No pertinent past medical history neghx: dvt/pe PCP: Dr. Myers Umbilical hernia Surgical History History of appendectomy open lap at 5 y/o History of (~1989) History of eye surgery History of heart artery stent 2 seperate surgeries. Abril [facility] History of tubal ligation Family History Mother Diabetes Hypertension Heart attack Father Hypertension Heart attack Denies family history of Colon cancer Ovarian cancer Breast cancer Uterine cancer Thyroid disease Stroke Data Anesthesia : 08/08/21 04:09 08/08/21 04:09 Short CBC 08/07/21 08/08/21 Range/Units 15:55 04:09 WBC 9.1 7.3 (4.0-10.0) 10^3/uL Hgb 13.2 13.2 (11.5-15.3) g/dL Hct 40.4 41.8 (37.0-47.0) % MCV 94.4 97.2 (81-99) fl Plt Count 190 168 (130-400) 10^3/cmm Neut % (Auto) 57.2 50.4 % Neut # (Auto) 5.22 3.69 (1.8-7.7) 10^3/uL BMP 08/07/21 08/08/21 15:55 04:09 Sodium 136 141 Potassium 4.9 4.6 Chloride 101 111 H Carbon Dioxide 23 19 L BUN 34 H 30 H Creatinine 1.1 H 0.7 Glucose 244 H 101 Calcium 9.1 8.9 Cardiac Enzymes 08/07/21 08/07/21 08/07/21 Range/Units 15:55 15:55 17:40 Troponin T Baseline 16 H (0-10) ng/L Troponin T 120 Minute 21.31 H (0-10) ng/L Delta Troponin T 5.31 (0-10) ABS# Troponin T Hi Sens 6Hr (0-10) ng/L Troponin T Hi Sens 6Hr Delta (0-12) ng/L NT-Pro-B Natriuret Pep 195 H (0-125) pg/mL 08/07/21 Range/Units 21:34 Troponin T Baseline (0-10) ng/L Troponin T 120 Minute (0-10) ng/L Delta Troponin T (0-10) ABS# Troponin T Hi Sens 6Hr 19.63 H (0-10) ng/L Troponin T Hi Sens 6Hr Delta 3.63 (0-12) ng/L NT-Pro-B Natriuret Pep (0-125) pg/mL Liver Function 08/07/21 08/08/21 Range/Units 15:55 04:09 Total Bilirubin 0.2 0.2 (0.15-1.2) mg/dL Direct Bilirubin 0.20 (0.00-0.30) mg/dL AST 81 H 45 H (0-32) U/L ALT 100 H 69 H (0-33) U/L Alkaline Phosphatase 110 H 101 (35-105) IU/L Albumin 4.0 3.4 L (3.5-5.2) g/dL Coags 08/08/21 04:09 C-Reactive Protein 3.0 Cardiac Studies: Echocardiogram 11/18/20
--- NOTE | 2021-08-08 13:58 | P.CONIM_ITS ---
Providers/Reason For Consult Consulting Physician/Specialty*: Dr. Sun/cardiothoracic surgery Reason for Consult*: Permanent pacemaker implantation Requesting Physician: Dr. Altman Attending Physician: Wilda Ponce MD Primary Care Provider: Lesvia Myers MD History of Present Illness History of Present Illness Cheryl Gordon is a 61 year old female with no history for coronary artery disease status post stent placements in 1999 and 2008 in [place], [place]. She presented to the emergency department yesterday, with complaints of shortness of breath and dizziness. She was found to be in heart block with an escape junctional rhythm at 30 bpm. He was initiated on dopamine and fluids and was evaluated by Dr. Altman. Last left heart catheterization was October 2018 which revealed patent coronary stents. After careful evaluation, left heart catheterization was completed earlier today by Dr. Altman and she described to me verbally that there was no substantial obstructive disease. Did the procedure, patient developed acute asystole and a transvenous temporary pacemaker was placed to the left groin. Left heart catheterization was performed through the right groin. Ms. Gordon is currently resting comfortably in the ICU bed 1. I been consulted to consider expeditious permanent pacemaker implantation. Dr. Altman has previously spoken with [facility] about this recommendation. Review of Systems Const: Denies: fever(s) or chills Eyes: Denies: change in vision ENMT: Denies: hoarseness Card: Reports: palpitations, irregular heart rhythm, lightheadedness and dyspnea on exertion Resp: Reports: dyspnea (With exertion.) GI: Denies: abdominal pain, nausea or vomiting Psych: Denies: anxiety or depression Bello/Lymph: Denies: easy bruising or easy bleeding Medications/Allergies Home Medications Medication Instructions Recorded Confirmed Last Taken Type aspirin 81 mg tablet,delayed 81 mg PO DAILY 06/01/19 08/07/21 08/07/21 History release blood-glucose meter (OneTouch #1 each 12/14/19 08/07/21 Unknown Rx Verio Meter) lancets #200 each 12/14/19 08/07/21 Unknown Rx ezetimibe 10 mg tablet 10 mg PO DAILY 05/31/20 08/07/21 08/07/21 History pen needle, diabetic 31 gauge x #400 ea 07/14/20 08/07/21 Unknown Rx 5/16 (TechLITE Pen Needle) furosemide 40 mg tablet (Lasix) 40 mg PO QAM #90 tab 07/20/20 08/07/21 08/07/21 Rx amlodipine 5 mg tablet 5 mg PO BID #60 tab 12/22/20 08/07/21 08/07/21 Rx paroxetine HCl 40 mg tablet 40 mg PO DAILY #90 tab 01/13/21 08/07/21 08/07/21 Rx nitroglycerin 0.4 mg sublingual See Rx Instructions .ROUTE 01/25/21 08/07/21 Unknown Rx tablet .COMPLEX #25 tab omeprazole 40 mg capsule,delayed 40 mg PO BID #60 cap 02/16/21 08/07/21 08/07/21 Rx release albuterol sulfate 90 mcg/actuation 2 puff INHALATION QID PRN #18 g 03/14/21 08/07/21 Unknown Rx aerosol inhaler (ProAir HFA) oxybutynin chloride 10 mg 10 mg PO DAILY #90 tab 05/08/21 08/07/21 08/07/21 Rx tablet,extended release 24 hr insulin aspart U-100 100 unit/mL 8 unit (0.08 mL) SUBCUT TID #30 ml 05/16/2108/07/21 Rx (3 mL) subcutaneous pen (Novolog Flexpen U-100 Insulin aspart) blood sugar diagnostic (Blood #100 each 06/01/21 08/07/21 Unknown Rx Glucose Test) insulin detemir U-100 100 unit/mL See Rx Instructions .ROUTE 07/06/21 08/07/21 08/07/21 Rx (3 mL) subcutaneous pen (Levemir .COMPLEX #15 ml FlexTouch U-100 Insulin) atorvastatin 80 mg tablet 80 mg PO DAILY 08/07/21 08/07/21 08/07/21 History carvedilol 6.25 mg tablet 6.25 mg PO BID 08/07/21 08/07/21 08/07/21 History epinephrine 0.3 mg/0.3 mL 0.3 mg IM Q10M PRN 08/07/21 08/07/21 Unknown History injection, auto-injector (EpiPen 2-Tra) levothyroxine 25 mcg tablet 25 mcg PO DAILY 08/07/21 08/07/21 08/07/21 History (Euthyrox) lisinopril 20 mg tablet 20 mg PO DAILY 08/07/21 08/07/21 08/07/21 History trazodone 150 mg tablet 150 mg PO BEDTIME 08/07/21 08/07/21 08/06/21 History Allergies Allergy/AdvReac Type Severity Reaction Status Date / Time amoxicillin Allergy Severe ALGY-Rash Verified 08/07/21 16:25 Iodine and Iodide Containing Allergy Severe ALGY-Hives Verified 08/07/21 16:25 Produc losartan Allergy Severe Unknown Verified 08/07/21 16:25 metformin Allergy Severe ALGY-Rash Verified 08/07/21 16:25 pregabalin [From Lyrica] Allergy Severe ADR-Itching Verified 08/07/21 16:25 morphine AdvReac Severe Hyper Verified 08/07/21 16:25 simvastatin AdvReac Severe ADR-Itching Verified 08/07/21 16:25 Current Medications Generic Name Dose Route Start Last Admin Trade Name Freq PRN Reason Stop Dose Admin Atorvastatin Calcium 80 mg 08/08/21 09:00 08/08/21 08:16 Atorvastatin 40 Mg Tablet PO 80 mg DAILY NARESH Administration Dopamine HCl/Dextrose 400 mg in 250 mls @ 19.561 mls/hr 08/07/21 21:15 08/07/21 21:44 Intropin Drip IV 0 mcg/kg/min CONT NARESH 0 mls/hr Titration Protocol 5 MCG/KG/MIN Insulin Human Lispro 0 unit 08/08/21 08:00 08/08/21 12:49 Insulin Lispro 100 Unit/1 Ml SUBCUT Not Given TIDWM NARESH Protocol Levothyroxine Sodium 25 mcg 08/08/21 09:00 08/08/21 08:16 Levothyroxine 25 Mcg Tablet PO 25 mcg DAILY NARESH Administration Ondansetron HCl 4 mg 08/07/21 18:42 08/08/21 10:29 Ondansetron 2 Mg/Ml Sdv 2 Ml IVP 4 mg Q6H PRN Administration NAUSEA AND VOMITING Trazodone HCl 150 mg 08/07/21 21:00 08/07/21 21:28 Trazodone 150 Mg Tablet PO Not Given BEDTIME NARESH PFSH Acute PFSH: Medical History COPD (chronic obstructive pulmonary disease) managed by [facility] Diabetes Fibromyalgia Hyperlipidemia Hypertension Left lower quadrant pain Major depressive disorder No pertinent past medical history neghx: dvt/pe PCP: Dr. Myers Umbilical hernia Surgical History History of appendectomy open lap at 5 y/o History of (~1989) History of eye surgery History of heart artery stent 2 seperate surgeries. [facility]il [facility] History of tubal ligation Family History Mother Diabetes Hypertension Heart attack Father Hypertension Heart attack Denies family history of Colon cancer Ovarian cancer Breast cancer Uterine cancer Thyroid disease Stroke Vitals/I&O/Wt Last Vital Signs Temp 98.5 F 08/08/21 04:00 Pulse 62 08/08/21 12:30 Resp 14 08/08/21 12:30 BP 132/58 08/08/21 12:30 Pulse Ox 91 08/08/21 12:30 08/07/21 08/08/21 08/08/21 22:59 06:59 14:59 Intake Total 2.934 / 2.934 1000 / 1000 Output Total 775 / 775 Balance 2.934 / 2.934 225 / 225 Weight last 48 hrs Weight 230 lb Weight 230 lb Physical Exam Narrative: Very pleasant and jovial short statured, obese diabetic female who was in her usual state of activity until yesterday with presentations of dyspnea on exertion, fatigue, and shortness of breath. She resides in [place], [place] and has utilized her manager care management in [place], [place] for several years. Const: COMMON NORMALS: no acute distress and patient oriented x3; negative for average body habitus (Short statured, obese) HENMT: COMMON NORMALS: normocephalic, atraumatic, hearing grossly normal bilaterally and external ears normal HEAD & SCALP: normocephalic and atraumatic EXTERNAL EAR: Yes external ears normal Eye: COMMON NORMALS: Equal, round and reactive pupils present, EOMs intact bilaterally and conjunctivae normal CONJUNCTIVA: Yes conjunctivae normal PUPIL: Yes Equal, round and reactive pupils present Neck/C-Spine: COMMON NORMALS: full ROM, no lymphadenopathy and No carotid bruits Chest: COMMONS NORMALS: normal inspection of the chest and normal palpation of entire chest wall Resp: COMMON NORMALS: normal respiratory effort and clear to auscultation bilaterally AUSCULTATION: clear to auscultation bilaterally Cardio: OTHER: Paced rhythm without murmur or rub GI: INSPECTION: Yes central obesity : OTHER: De Jesus catheter in position with clear urine in bag Extremity: COMMON NORMALS: normal to inspection and no clubbing, cyanosis or edema Neuro: COMMON NORMALS: patient oriented x3, no focal motor deficits and no sensory deficits noted Urinary Catheter Management: De Jesus: Cath Placed During This Visit: yes Urinary Catheter Date of Insertion: 08/08/21 Urinary Catheter Time of Insertion: 08:10 Data : 08/08/21 04:09 08/08/21 04:09 A&P Assessment and plan (1) CHB (complete heart block): Complete heart block requiring temporary pacing. We will plan to proceed this afternoon for pacemaker implantation. Rationale for this was carefully discussed with Ms. Gordon. Details and risks of the procedure were carefully and frankly discussed. Risks reviewed include the possibility of , stroke, heart attack, major bleeding, infection, pneumonia, pneumothorax requiring chest tube, organ failure, failure to benefit, prolonged hospital stay, pain after the procedure, need for further procedures, inability to complete the procedure, dislodgment of the pacing leads requiring revision, and need for long-term followup. All questions were answered. Appropriate consents have been provided for review and signature. Status: Acute Consult Attestations Medical Necessity Statement: Complete heart block requiring temporary pacemaker Time Spent in Patient Care: 16 - 35 minutes Coding Level of Care Code Acute Technology Trainer for [facility] Diagnoses CHB (complete heart block) I44.2
--- NOTE | 2021-08-08 14:48 | SC_ITS ---
WS: [id number] INTRAOPERATIVE TECHNIQUE: 2 Spot fluoroscopic images for intraoperative purposes. FLUOROSCOPY TIME: 364.3 seconds CLINICAL INFORMATION: pacemaker placement COMPARISON: None. FINDINGS: Dual-lead cardiac pacer leads visualized. SC/C-arm FL for Pacemaker IMPRESSION: Images obtained for intraoperative purposes.
[2021-08-08 14:59] LABS: Add Urine Microscopic? YES; Bilirubin Urine Neg (Negative); Blood Urine 2+ (Negative); Glucose Urine UA 1+ (Normal); Ketones Urine 1+ (Negative); Leukocyte Esterase Urine Trace (Negative); Nitrate Urine Negative (Negative); Protein Urine Trace (Negative); Specific Gravity, Urine 1.015 (1.005-1.030); Urine Appearance Clear (CLEAR); Urine Color Straw (Yellow); Urobilinogen Urine Norm (Negative); pH Urine 5 (5-7)
[2021-08-08] MEDS: vancomycin 1,500 MG/300 ML PIGGYBACK 200 MG IV (14:59)
[2021-08-08 15:00] LABS: Add Urine Culture? No; Bacteria Urine TRACE /hpf; Mucus Urine TRACE /hpf; Squamous Epithelial Cell Urine 0-4 /hpf (0-5)
[2021-08-08] MEDS: lidocaine 1% INJ 20 mL INJECTION (15:39)
[2021-08-08] MEDS: vancomycin 1,000 MG SDV 1000 MG IRRIGATION (15:40)
--- NOTE | 2021-08-08 17:28 | SUR.OPER ---
1700 temporary pacemaker removed without incident. sheath left in place, no bleeding noted.
--- NOTE | 2021-08-08 17:47 | P.OP_ITS ---
Operative Report Date of procedure: August 08, 2021 Pre-op diagnosis: Preop Diagnosis Complete heart block, atypical chest pain Post-op diagnosis: same Procedure done: Dual-chamber pacemaker implantation Implants: Pacemaker generator Atrial and ventricular leads Pathology: none sent Surgeon: Jere Sun Anesthesia: MAC and Local Complications: None: Post procedure chest x-ray pending Condition: stable Brief History: Ms. Gordon is a 61-year-old short stature, obese, diabetic female who presented with complete heart block with escape rate of 30 bpm. During left heart catheterization earlier this morning, she was found to have noncritical disease that did not require dimension. However, she developed complete asystole requiring transvenous pacemaker implantation. I was consulted to consider expeditious permanent pacemaker implantation. Details of risk the procedure were carefully and frankly discussed with Ms. Gordon. Appropriate consents were reviewed and signed. Procedure: Procedure: Ms. Gordon was taken to the OR suite and placed in the supine position over a shoulder roll. She received conscious sedation with continuous anesthesia monitoring by. Her entire chest was sterilely prepped and draped. 1% lidocaine was infiltrated in the left subclavicular region. Multiple attempts at initial engagement the left subclavian vein without success and were not improved as visualization of the subclavian vein by handheld ultrasonography was poor. Eventually however, while in Trendelenburg position, utilizing modified seldinger technique, 2 guidewires were placed in the left subclavian vein. This was confirmed in position by fluoroscopy. Next, after infiltration with lidocaine, a subcutaneous pocket was created beginning from the exit point of the guidewire and extending laterally and inferiorly. Cautery was utilized to create the pocket just above the pectoralis musculature. Hemostasis was confirmed. An antibiotic-soaked sponge was placed in the wound. A dilator and tear-away sheath was placed over the first guidewire and advanced under fluoroscopy. Guidewire and dilator were removed. Next using a combination of curved and straight stylettes, the right ventricular lead was placed in position by fluoroscopy. The distal screw was extended. Interrogation was then performed confirming appropriate parameters. The tear-away sheath was then removed and the ventricular lead was sewn to the floor of the subcutaneous pocket. In a similar fashion dilator and tear-away sheath was placed over the 2nd guide wire and advanced under fluoroscopy. Guidewire and dilator were removed. Straight and curved stylettes were used to position the right atrial lead with fluoroscopy. Distal screw was extended. Interrogation was then performed. Tear-away sheath was then removed. Atrial lead was secured to the floor of the subcutaneous pocket. Pocket was irrigated with antibiotic solution and hemostasis again confirmed. Pacing generator was brought into the field, and after confirmation of hemostasis in the subcutaneous pocket, the leads were connected to the generator with appropriate capture. The entire system was interrogated by fluoroscopy. Leads and generator were secured in the pocket. Sponge and needle count was correct. The wound was then closed in 2 layers of 3-0 Vicryl suture. Skin was reapproximated in a subcuticular manner with 4-0 Monocryl suture. A pressure dressing was applied. The left arm was placed in a sling. The patient had equal breath sounds bilaterally. She was then transferred to the intensive care unit, where chest x-ray is currently pending. I cannot find family members immediately postop for consultation. Following are the specifics of this system: Right ventricular lead is 58 cm and model 5076. Serial number [id number] Right atrial lead is 52 cm and is model 5076. Serial number [id number]. Ventricular lead had sensing of 12.5 mV with an impedance of 779 ohms. Threshold was 1.3 V Atrial lead had sensing of 1.8 mV with an impedance of 475 ohms. Threshold was 2.25 V. [employer] generator: Model #[id number] Serial #[id number]
--- NOTE | 2021-08-08 17:56 | PC.NURSE ---
Arrived from surgery to room at 1742. Dual chamber pacemaker inserted. Caputuring on tele.
[2021-08-08] MEDS: insulin lispro 100 unit/1 mL SUBCUT (18:05)
[2021-08-08] MEDS: sulfamethoxazole-trimeth DS 160-800 mg Tablet 1 TAB PO (18:05)
[2021-08-08 18:06] LABS: Glucose Point of Care 213 mg/dL (70-110)
[2021-08-08] MEDS: acetaminophen 500 mg Tablet PO (19:32)
[2021-08-08] MEDS: trazodone 150 mg Tablet PO (21:16)
[2021-08-08 21:45] LABS: Glucose Point of Care 248 mg/dL (70-110)
[2021-08-09] VITALS (15 sets, daily range): BP systolic 127–154; BP diastolic 50–62; PULSE 60–80; RESP 15–20; TEMP 36.7; O2SAT 95–98
--- NOTE | 2021-08-09 04:06 | ANE.PACU2 ---
Inpatient post-anesthesia follow up: Airway intact: Yes Vital signs: Temperature 97.3 F Pulse Rate 60 Respiratory Rate 15 Blood Pressure 154/60 Pulse Oximetry 98 Oxygen Delivery Me thod Room Air Oxygen Flow Rate 10 Fraction of Inspir ed Oxygen Hydration adequate: Yes Nausea and vomiting: No Pain level: 1 Mental status: Baseline
[2021-08-09 05:10] LABS: Basophils % 0.2 %; Hematocrit 45.1 % (37.0-47.0); Hemoglobin 14.1 g/dL (11.5-15.3); Lymphocytes # 1.8 10^3/uL (0.8-4.8); Lymphocytes % 14.2 %; Mean Corpuscular HGB Conc 31.3 g/dL (30.0-36.0); Mean Corpuscular Hemoglobin 31.3 pg (28.0-34.0); Mean Platelet Volume 11.3 fL (7.4-10.4); Monocytes # 0.7 10^3/uL (0.2-0.9); Monocytes % 5.6 %; Neutrophils # 10.05 10^3/uL (1.8-7.7); Neutrophils % 79.5 %; Nucleated Red Blood Cells % 0 %; Platelet Count 152 10^3/cmm (130-400); Red Blood Count 4.51 10^6/uL (4.1-5.3); Red Cell Distribution Width 11.8 % (12.1-15.1); White Blood Count 12.7 10^3/uL (4.0-10.0)
[2021-08-09] MEDS: acetaminophen 500 mg Tablet PO (05:23)
[2021-08-09 05:29] LABS: Blood Urea Nitrogen 28 mg/dL (6-20); Calcium 8.9 mg/dL (8.5-10.5); Carbon Dioxide 18 mmol/L (22-29); Chloride 110 mmol/L (98-107); Glomerular Filtration Rate 73.4 mL/min (90-130); Glucose 326 mg/dL (65-115); Magnesium 2.4 mg/dL (1.7-2.3); Osmolality Calculated 304 mOsm/kg (285-295); Sodium 138 mmol/L (136-145)
[2021-08-09 05:30] LABS: Glucose Point of Care 313 mg/dL (70-110)
[2021-08-09 05:40] LABS: Anion Gap 15.4 (5-19); Potassium 5.4 mmol/L (3.5-5.1)
[2021-08-09] MEDS: insulin glargine 100 units/1 mL 10 UNIT SUBCUT (05:56)
--- NOTE | 2021-08-09 07:18 | PC.NURSE ---
Physician rounding Dr. Infante at bedside, took pressure dressing off to L chest pacer insertion, left tegaderm over gauze on said to leave on for another day. took immobilizer off gave patient instructions not to raise left arm above eye level
--- NOTE | 2021-08-09 07:19 | PM.PN ---
Subjective Subjective: Postop day #1 status post dual-chamber pacemaker implantation. Uneventful night as reported by nurses. Pacemaker interrogation has been completed this morning. No ecchymosis. No substantial swelling. Capture at a rate of 72 bpm. Vitals/I&O/Wt Last Vital Signs Temp 97.3 F L 08/08/21 19:00 Pulse 80 08/09/21 06:00 Resp 15 08/09/21 02:45 BP 154/60 08/09/21 02:45 Pulse Ox 98 08/09/21 02:45 08/08/21 08/09/21 08/09/21 22:59 06:59 14:59 Intake Total 815 / 1815 500 / 2315 Output Total 150 / 925 1450 / 2375 Balance 665 / 890 -950 / -60 Weight last 48 hrs Weight 230 lb Weight 230 lb Physical Exam Chest: OTHER: Outer compressive dressing removed. Inner dressing remains in place. No localized swelling. Mild tenderness at insertion site. No left arm swelling. Urinary Catheter Management: De Jesus: Cath Placed During This Visit: yes Reason for Continuing Indwelling Catheter: Accurate Measurement of Urinary Output in Critically Ill Patients Urinary Catheter Date of Insertion: 08/08/21 Urinary Catheter Time of Insertion: 08:10 Data : 08/09/21 04:26 08/09/21 04:26 A&P Assessment and plan (1) Status post biventricular pacemaker: POD #1 status post pacemaker implantation Will continue her Bactrim twice daily for 3 days for prophylaxis Follow-up in heart care clinic/pacemaker clinic 1 week after discharge. Discharge instructions have included in the discharge summary. Status: Acute Attestations Medical Necessity Statement*: Status post dual-chamber pacemaker implantation secondary to complete heart block with temporary pacemaker dependency. 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
[2021-08-09 07:40] LABS: Glucose Point of Care 291 mg/dL (70-110)
[2021-08-09] MEDS: sulfamethoxazole-trimeth DS 160-800 mg Tablet 1 TAB PO (08:25)
[2021-08-09] MEDS: insulin lispro 100 unit/1 mL SUBCUT (08:26)
[2021-08-09] MEDS: levothyroxine 25 mcg Tablet PO (08:26)
[2021-08-09] MEDS: atorvastatin 40 mg Tablet 80 MG PO (08:26)
--- NOTE | 2021-08-09 08:49 | P.PN_ITS ---
Subjective Subjective: POD #1 after dual chamber PPM implant Feels well. Medications: Reviewed: Yes Vitals/I&O/Wt Last Vital Signs Temp 97.3 F L 08/08/21 19:00 Pulse 65 08/09/21 07:35 Resp 16 08/09/21 07:35 BP 154/60 08/09/21 02:45 Pulse Ox 95 08/09/21 07:35 08/08/21 08/09/21 08/09/21 22:59 06:59 14:59 Intake Total 815 / 1815 500 / 2315 200 / 200 Output Total 150 / 925 1450 / 2375 Balance 665 / 890 -950 / -60 200 / 200 Weight last 48 hrs Weight 230 lb Weight 230 lb Physical Exam Narrative: GENERAL: obese woman laying in bed in no acute distress HEENT: Extraocular movement intact. ? No pallor or icterus. NECK: No JVD, ? No carotid bruit. CARDIOVASCULAR SYSTEM: S1-S2 regular. bradycardia+ No murmur or gallops. RESPIRATORY SYSTEM: Chest clear to auscultation.? No wheezes rhonchi or rubs heard. No use of accessory muscles. Left upper chest pacemaker in place. No significant hematoma or bruising ABDOMEN: Soft, nontender and nondistended.? Normal bowel sounds present.? EXTREMITIES: No cyanosis or edema.? No signs of chronic venous insufficiency. Bilateral femoral access sites checked and looks good. (No bruising or hematoma). DIAGNOSTIC CARDIAC SONOGRAPHER: Patient is alert oriented ?3.? No focal neurological deficits.? SKIN: Normal turgor and temperature. PSYCH: Normal insight and judgment. emotional this morning. ? Urinary Catheter Management: De Jesus: Cath Placed During This Visit: yes Reason for Continuing Indwelling Catheter: Accurate Measurement of Urinary Output in Critically Ill Patients Urinary Catheter Date of Insertion: 08/08/21 Urinary Catheter Time of Insertion: 08:10 Data : 08/09/21 04:26 08/09/21 04:26 A&P Assessment and plan (1) CHB (complete heart block): -s/p dual chamber PPM. Appreciate Dr. Sun's help in managing the patient. -normal LV function on echo. -device functioning normally. -f/u with Anabel in 1 week. Status: Acute (2) Coronary artery disease: No obstructive CAD on [facility] Status: Acute (3) Hypertension: not on antihypertensives presently -resume lisinopril on discharge. -BP/HR log x 1 weeks Status: Acute Qualifiers: Hypertension type: unspecified Qualified Code(s): I10 - Essential (primary) hypertension (4) Hyperlipidemia: Status: Acute Qualifiers: Hyperlipidemia type: mixed hyperlipidemia Qualified Code(s): E78.2 - Mixed hyperlipidemia (5) Diabetes: Status: Acute Plan URI: resolved Elevated liver enzymes: resolved Hypothyroidism GERD Thank you for allowing me to participate in patient's care. Please feel free to call with questions or concerns. Attestations Medical Necessity Statement*: stable to be discharged. Coding Level of Care Code Established Pt Acute Bus Steward for Kayleigh Lerma Patient Type Established History Detailed Exam Detailed Medical Decision Making Moderate Complexity Diagnoses CHB (complete heart block) I44.2 Coronary artery disease I25.10 Hypertension I10 Hypertension type: unspecified Hyperlipidemia E78.2 Hyperlipidemia type: mixed hyperlipidemia Diabetes E11.9
--- NOTE | 2021-08-09 09:12 | PM.DCS ---
Discharge Providers Date of Admission: 08/07/21 17:08 Date of Discharge: August 09, 2021 Attending Provider at Admission: Wilda Ponce MD Attending Provider at Discharge: Wilda Ponce MD Primary Care Provider: Lesvia Mariano MD Diagnoses at Discharge Discharge Diagnosis (1) CHB (complete heart block): Status: Acute (2) Coronary artery disease: Status: Acute (3) Hypertension: Status: Acute Qualifiers: Hypertension type: unspecified Qualified Code(s): I10 - Essential (primary) hypertension (4) Hyperlipidemia: Status: Acute Qualifiers: Hyperlipidemia type: mixed hyperlipidemia Qualified Code(s): E78.2 - Mixed hyperlipidemia (5) Diabetes: Status: Acute Reason for Visit Reason for Visit: CARDIAC Hospital Course Hospital Course Consult note by Dr. Anupama maldonado Arnold Gordon is a 61 year old female with a history of coronary artery disease with stents placed several years ago (1999 and 2008) in [facility] with last LHC in 10/2018 that showed patent stents.? She also has obesity, HTN, DM-2, GERD, dyslipidemia, hypothyroidism and CHRIS.? She presented with sudden onset SOB and dizziness. She checked her BP and HR. HR was in 30's and hence she came to ER for further evaluation. EKG in ER showed sinus rhythm with complete heart block. Junctional escape rhythm. Non specific ST depression.? She complains of dizziness and SOB on ambulation/minimal activity. No chest pain, SOB, presyncope/syncope while at rest. She remains in CHB with junctional rhythm in 30-40's Hospital course Patient was admitted to ICU for complete heart block, symptomatic bradycardia, she was started on dopamine drip which exacerbated her symptoms of shortness of breath and PVCs. This was turned off overnight. Patient remained hemodynamically stable, next day she went for coronary angiogram which was unremarkable nonobstructive coronaries. Dr. Sun was consulted for pacemaker placement. Status post dual-chamber pacemaker placement on 08/08. Pacemaker evaluation done. Patient's heart rate improved from 30-4o s to pacemaker dependent rate of 70 to 80s. She was given antibiotic coverage for pacemaker wound prophylaxis. Outpatient pacemaker clinic follow-up given. She can resume her lisinopril, Coreg discontinued. Etiology for complete heart block is unknown. Physical Exam Narrative: GENERAL: obese woman laying in bed in no acute distress HEENT: Extraocular movement intact. ? No pallor or icterus. NECK: No JVD, ? No carotid bruit. CARDIOVASCULAR SYSTEM: S1-S2 regular. bradycardia+ No murmur or gallops. RESPIRATORY SYSTEM: Chest clear to auscultation.? No wheezes rhonchi or rubs heard. No use of accessory muscles. Left upper chest pacemaker in place. No significant hematoma or bruising ABDOMEN: Soft, nontender and nondistended.? Normal bowel sounds present.? EXTREMITIES: No cyanosis or edema.? No signs of chronic venous insufficiency. Bilateral femoral access sites checked and looks good. (No bruising or hematoma). WOOD HEEL FLAP RUBBER: Patient is alert oriented ?3.? No focal neurological deficits.? SKIN: Normal turgor and temperature. PSYCH: Normal insight and judgment. emotional this mornin Urinary Catheter Management: De Jesus: Cath Placed During This Visit: yes Reason for Continuing Indwelling Catheter: Accurate Measurement of Urinary Output in Critically Ill Patients Urinary Catheter Date of Insertion: 08/08/21 Urinary Catheter Time of Insertion: 08:10 Discharge Data Studies Completed and Pending Completed Studies During Hospitalization Category Date Time Status XR chest 1V portable [id number] Urgent Exams 08/07/21 15:55 Completed CV. echo complete* [id number] Routine Ultrasound 08/07/21 Completed CV. echo lmt w/w contras [id number] Routine Ultrasound 08/08/21 Completed Pending at discharge Category Date Time Status C-arm FL for Pacemaker Routine Exams 08/08/21 14:48 Taken [employer] request for service Routine Exams 08/08/21 08:16 Taken Radiology Impressions Chest X-Ray 08/07/21 15:55 IMPRESSION: No acute findings. Laboratory Results WBC 12.7 10^3/uL (4.0-10.0) H 08/09/21 04:26 RBC 4.51 10^6/uL (4.1-5.3) 08/09/21 04:26 Hgb 14.1 g/dL (11.5-15.3) 08/09/21 04:26 Hct 45.1 % (37.0-47.0) 08/09/21 04:26 MCV 100.0 fl (81-99) H 08/09/21 04:26 MCH 31.3 pg (28.0-34.0) 08/09/21 04:26 MCHC 31.3 g/dL (30.0-36.0) 08/09/21 04:26 RDW 11.8 % (12.1-15.1) L 08/09/21 04:26 Plt Count 152 10^3/cmm (130-400) 08/09/21 04:26 MPV 11.3 fL (7.4-10.4) H 08/09/21 04:26 Neut % (Auto) 79.5 % 08/09/21 04:26 Lymph % (Auto) 14.2 % 08/09/21 04:26 Hill % (Auto) 5.6 % 08/09/21 04:26 Eos % (Auto) 0.0 % 08/09/21 04:26 Baso % (Auto) 0.2 % 08/09/21 04:26 Neut # (Auto) 10.05 10^3/uL (1.8-7.7) H 08/09/21 04:26 Lymph # (Auto) 1.8 10^3/uL (0.8-4.8) 08/09/21 04:26 Hill # (Auto) 0.7 10^3/uL (0.2-0.9) 08/09/21 04:26 Eos # (Auto) 0.0 10^3/uL (0.0-0.8) 08/09/21 04:26 Baso # (Auto) 0.0 10^3/uL (0.0-0.1) 08/09/21 04:26 Nucleated RBC % (auto) 0 % 08/09/21 04:26 Nucleated RBCs # 0.0 /100WBC 08/09/21 04:26 Sodium 138 mmol/L (136-145) 08/09/21 04:26 Potassium 5.4 mmol/L (3.5-5.1) H 08/09/21 04:26 Chloride 110 mmol/L (98-107) H 08/09/21 04:26 Carbon Dioxide 18 mmol/L (22-29) L 08/09/21 04:26 Anion Gap 15.4 (5-19) 08/09/21 04:26 BUN 28 mg/dL (6-20) H 08/09/21 04:26 Creatinine 0.8 mg/dL (0.5-0.9) 08/09/21 04:26 GFR Calculation 73.4 mL/min (90-130) L 08/09/21 04:26 Glucose 326 mg/dL (65-115) H 08/09/21 04:26 POC Glucose 291 mg/dL (70-110) H 08/09/21 07:36 Calculated Osmolality 304 mOsm/kg (285-295) H 08/09/21 04:26 Calcium 8.9 mg/dL (8.5-10.5) 08/09/21 04:26 Magnesium 2.4 mg/dL (1.7-2.3) H 08/09/21 04:26 Total Bilirubin 0.2 mg/dL (0.15-1.2) 08/08/21 04:09 Direct Bilirubin 0.20 mg/dL (0.00-0.30) 08/08/21 04:09 AST 45 U/L (0-32) H 08/08/21 04:09 ALT 69 U/L (0-33) H 08/08/21 04:09 Alkaline Phosphatase 101 IU/L (35-105) 08/08/21 04:09 Troponin T Baseline 16 ng/L (0-10) H 08/07/21 15:55 Troponin T 120 Minute 21.31 ng/L (0-10) H 08/07/21 17:40 Delta Troponin T 5.31 ABS# (0-10) 08/07/21 17:40 Troponin T Hi Sens 6Hr 19.63 ng/L (0-10) H 08/07/21 21:34 Troponin T Hi Sens 6Hr Delta 3.63 ng/L (0-12) 08/07/21 21:34 C-Reactive Protein 3.0 mg/L (0.0-4.9) 08/08/21 04:09 NT-Pro-B Natriuret Pep 195 pg/mL (0-125) H 08/07/21 15:55 Total Protein 5.8 g/dL (6.6-8.7) L 08/08/21 04:09 Albumin 3.4 g/dL (3.5-5.2) L 08/08/21 04:09 Globulin 2.4 g/dL (1.3-4.6) 08/08/21 04:09 TSH 1.65 uIU/mL (0.27-4.20) 08/07/21 15:55 Urine Color Straw (Yellow) 08/08/21 13:56 Urine Appearance Clear (CLEAR) 08/08/21 13:56 Urine pH 5 (5-7) 08/08/21 13:56 Ur Specific [place] 1.015 (1.005-1.030) 08/08/21 13:56 Urine Protein Trace (Negative) 08/08/21 13:56 Urine Glucose (UA) 1+ (Normal) H 08/08/21 13:56 Urine Ketones 1+ (Negative) H 08/08/21 13:56 Urine Blood 2+ (Negative) H 08/08/21 13:56 Urine Nitrate Negative (Negative) 08/08/21 13:56 Urine Bilirubin Neg (Negative) 08/08/21 13:56 Urine Urobilinogen Norm mg/dL (Negative) 08/08/21 13:56 Ur Leukocyte Esterase Trace (Negative) H 08/08/21 13:56 Urine RBC 5-10 /hpf (0-2) H 08/08/21 13:56 Urine WBC 5-10 /hpf (0-5) H 08/08/21 13:56 Ur Squamous Epith Cells 0-4 /hpf (0-5) H 08/08/21 13:56 Amorphous Sediment Not Reportable 08/08/21 13:56 Urine Bacteria Trace /hpf (NONE) 08/08/21 13:56 Urine Mucus Trace /hpf 08/08/21 13:56 Vitals Last Vital Signs Temp 97.3 F L 08/08/21 19:00 Pulse 65 08/09/21 07:35 Resp 16 08/09/21 07:35 BP 154/60 08/09/21 02:45 Pulse Ox 95 08/09/21 07:35 Discharge Plan Discharge Patient Disposition: Home Condition: Stable Prescriptions: New sulfamethoxazole-trimethoprim 800-160 mg Tablet 1 tab PO BID Qty: 6 0RF Continued ezetimibe 10 mg tablet 10 mg PO DAILY 0RF amlodipine 5 mg tablet 5 mg PO BID Qty: 60 3RF oxybutynin chloride 10 mg tablet extended release 24hr 10 mg PO DAILY Qty: 90 3RF aspirin 81 mg tablet,delayed release (DR/EC) 81 mg PO DAILY 0RF furosemide [Lasix] 40 mg tablet 40 mg PO QAM Qty: 90 1RF omeprazole 40 mg capsule,delayed release(DR/EC) 40 mg PO BID Qty: 60 3RF (DME) lancets Misc See Rx Instructions .ROUTE .MEDSUPPLY Qty: 200 5RF Rx Instructions: ONE LANCET QID (DME) blood-glucose meter [OneTouch Verio Meter] Mis See Rx Instructions .ROUTE .MEDSUPPLY Qty: 1 0RF Rx Instructions: As directed; pt to test 2 x daily and prn (DME) pen needle, diabetic [TechLITE Pen Needle] 31 gauge x 5/16 needle See Rx Instructions .ROUTE .MEDSUPPLY Qty: 400 4RF Rx Instructions: As directed TO INJECT INSULIN QID paroxetine HCl 40 mg tablet 40 mg PO DAILY Qty: 90 1RF nitroglycerin 0.4 mg tablet, sublingual See Rx Instructions .ROUTE .COMPLEX Qty: 25 0RF Dose Instruction: DISSOLVE ONE TABLET UNDER THE TONGUE EVERY 5 MINUTES NEEDED FOR CHEST PAIN. DO NOT EXCEED A TOTAL OF 3 DOSES IN 15 MINUTES Rx Instructions: DISSOLVE ONE TABLET UNDER THE TONGUE EVERY 5 MINUTES NEEDED FOR CHEST PAIN. DO NOT EXCEED A TOTAL OF 3 DOSES IN 15 MINUTES albuterol sulfate [ProAir HFA] 90 mcg/actuation HFA aerosol inhaler 2 puff inhalation QID PRN (Reason: shortness of breath or wheezing) Qty: 18 6RF Novolog Flexpen U-100 Insulin 100 unit/mL (3 mL) insulin pen 8 unit SUBCUT TID Qty: 30 3RF Rx Instructions: Inject 8 units subcut three times a day. (DME) Blood Glucose Test Strip See Rx Instructions .ROUTE .MEDSUPPLY Qty: 100 3RF Rx Instructions: to test 3 x day Levemir FlexTouch U-100 Insuln 100 unit/mL (3 mL) insulin pen See Rx Instructions .ROUTE .COMPLEX Qty: 15 2RF Dose Instruction: INJECT 60 UNITS SUBCUTANEOUSLY ONCE DAILY Rx Instructions: INJECT 70 UNITS SUBCUTANEOUSLY ONCE DAILY EpiPen 2-Tra 0.3 mg/0.3 mL Auto-Injector 0.3 mg IM Q10M PRN (Reason: Allergic Reaction) 0RF Rx Instructions: for 2 doses atorvastatin 80 mg tablet 80 mg PO DAILY 0RF Euthyrox 25 mcg tablet 25 mcg PO DAILY 0RF trazodone 150 mg tablet 150 mg PO BEDTIME 0RF Changed lisinopril 20 mg tablet 10 mg PO DAILY Qty: 0 0RF Discontinued carvedilol 6.25 mg tablet 6.25 mg PO BID 0RF Discharge Orders: Discharge Order (Routine); Ordered 08/09/21 Ordered By: Wilda Ponce Referrals: [facility] [Provider Group] - 1 week (DISCHARGE FOLLOW UP APPOINTMENT . 1 WEEK AT [facility] WITH IHSAN TORRE APN NURSE [facility] FOR POST PACEMAKER , POST CARDIAC CATH, WOUND CHECK ,LAB TEST, FOR THE DATE OF July AT TIME OF 09:45 AM ) Lesvia Mariano MD [Primary Care Provider] - (THIS FOLLOW UP APPOINTMENT HAS BEEN SCHEDULED : LESVIA MARIANO AUGUST 17, 2021 AT TIME OF 3:20 PM , IF THIS APPOINTMENT NOT CONVEINENT PLEASE CALL EARLY TO RESCHEDULE.) Discharge Diet: Usual diet Discharge Activity: Limit activity as instructed Patient Instructions: Sulfamethoxazole/Trimethoprim (By mouth), Pacemaker (DC), Heart Catheterization (DC), Angio-Seal (DC), Opioid Safety, Post Pacemaker - Maurisio, Post Pacemaker - Sun Activity Restrictions/Additional Instructions: May remove bandage in 2 days May begin daily showers in 3 days No swimming or tub baths x 2 weeks No ointments on incision May recover incision as desired to prevent irritation from clothing Do not raise left hand above eye level for 1 week If you tend to move about while sleeping, I recommend you wear left arm sling. Report drainage, redness, heat, increased pain, or swelling to clinic We will hold lisinopril for 2 days as potassium level was increased on discharge and then resume on 08/11 at 10 mg if BP > 130/80 mm Hg. We will re check labs in 1 week Check blood pressure and heart rate twice a day for 2 weeks. Follow up in Discharge Attestations Time Spent in Discharge Care*: less than 30 min Quality Metrics Clinical Quality Measures [ No reported AMI, CVA or VTE this stay] Coding Level of Care Code Acute Chg FW DC note Diagnoses CHB (complete heart block) I44.2 Coronary artery disease I25.10 Hypertension I10 Hypertension type: unspecified Hyperlipidemia E78.2 Hyperlipidemia type: mixed hyperlipidemia Diabetes E11.9
--- NOTE | 2021-08-09 10:44 | PC.CHAP ---
Pastoral Care Encounter/Spiritual Assessment Type of Contact [] Declined profile grinder visit [] Patient/Family/Request visit [] Outpatient visit [] Follow-up visit [] Physician referral [] Code/Alert [x] Routine visit [] Staff referral [] Actively dying [x] Patient sleeping [] Family support [] [] Out of room [] Palliative care [] [] Receiving care in room [] Pre-surgical visit [] Trauma [] Long length of stay [x] ICU visit [] Other: Relational/Emotional Strength [] Patient feels connected with others/family/visitors/staff [] Distress [] Loneliness/isolation [] Abandonment Spirituality of Patient [] Person of Dayna [] Attends Adventism of their Dayna [] Believes in Prayer [] Reads Bible or Quaker materials [] There are Spiritual issues to be addressed Program Research Specialist Interventions [x] Prayer [] Active listening [] Non-anxious presence [] Spiritual/emotional support [] Crisis/trauma care [] Spiritual counseling [] Bereavement support [] Provided bereavement packet [] Provided Bible/devotional materials [] Provided toy/stuffed animal, coloring book to patient or family member [] Provided Communion [] Anointing/[place] [] Salvation [x] Completed spiritual assessment [] Other: Impact on Illness or Injury [] Angry [] Fearful [] Anxious [] Often cries [] Exhaustion [] Unable to work [] Unable to attend congregational [] Unable to walk/stand [] Unable to read [] Unable to drive [] Unable to eat/drink [] Unable to sleep [] Unable to be with family [] Patient intubated [] Other: Summary Time spent with patient
--- NOTE | 2021-08-09 11:25 | PC.NURSE ---
D/C instructions discussed with patient including medication changes and all follow up appointments, patient CRISTINA at this time transported by son
--- NOTE | 2021-08-30 09:59 | P.PCN_ITS ---
Procedure Note: Date of procedure: 08/08/21 Pre-procedure diagnosis: Complete heart block Post-procedure diagnosis: same Procedure: Temporary venous pacemaker placement We obtained access in the left femoral vein access. Temporary pacemaker was advanced and capture was confirmed. Asynchronous pacing was started. Pacemaker sheath was sutured in place. This was followed by cardiac catheterization. Findings of the cardiac cath are in separate report. Patient left medical lab technician in a stable condition Performing Provider: Lucio Barnard Complications: None Coding Level of Care Code Acute Billiard Table Mechanic for Kayleigh Lerma
== END 2021-08-09 11:28 | disposition home or self-care (01) | DRG 243 ==
LOC: ER 17:30 → ICU 17:57
PROVIDERS: Internal Medicine; Internal Medicine Cardiovascular Disease; Thoracic Surgery (Cardiothoracic Vascular Surgery); Admitting Provider Internal Medicine; Emergency Provider Emergency Medicine; PCP Family Medicine; Visit Provider Internal Medicine
PROC: B211YZZ Fluoroscopy of Multiple Coronary Arteries using Other Contrast (ICD-10-PCS; principal; 2021-08-08 09:00)
PROC: 0JH606Z Insertion of Pacemaker, Dual Chamber into Chest Subcutaneous Tissue and Fascia, Open Approach (ICD-10-PCS; principal; 2021-08-08 15:00)
DX: I44.2 Atrioventricular block, complete (principal); N17.9 Acute kidney failure, unspecified; I25.118 Atherosclerotic heart disease of native coronary artery with other forms of angina pectoris; I10 Essential (primary) hypertension; E78.2 Mixed hyperlipidemia; E11.9 Type 2 diabetes mellitus without complications; E66.01 Morbid (severe) obesity due to excess calories; Z68.37 Body mass index [BMI] 37.0-37.9, adult; K21.9 Gastro-esophageal reflux disease without esophagitis; E03.9 Hypothyroidism, unspecified; G47.33 Obstructive sleep apnea (adult) (pediatric); J44.9 Chronic obstructive pulmonary disease, unspecified; R74.8 Abnormal levels of other serum enzymes; Z95.5 Presence of coronary angioplasty implant and graft; Z79.82 Long term (current) use of aspirin; Z79.4 Long term (current) use of insulin
CPT/HCPCS: 33210; 36415; 36416; 51702; 71045; 76000; 80048; 80053; 80076; 81001; 82962; 83735; 83880; 84443; 84484; 85025; 86140; 93005; 93306; 93454; 96372; 99285; C1760; C1769; C1779; C1786; C1887; C1894; C1898; C8924; C8929; J1200; J1265; J1644; J1815 ×2; J2250; J2405; J2704; J2920; J3010; J3370; J3490; J7030; Q9967

== ENCOUNTER → 2021-08-16 09:37 | Outpatient (BNVA) | payer MEDICAID, SELFPAY | PROVIDERS: PCP Family Medicine; Visit Provider Nurse Practitioner Family | DX: I25.10 Atherosclerotic heart disease of native coronary artery without angina pectoris (principal); I10 Essential (primary) hypertension; Z95.0 Presence of cardiac pacemaker | CPT/HCPCS: 80048; 99214 ==

== ENCOUNTER → 2021-09-22 09:41 | Outpatient (BNVA) | payer MEDICAID, SELFPAY | PROVIDERS: PCP Family Medicine; Visit Provider Internal Medicine Cardiovascular Disease | DX: Z45.010 Encounter for checking and testing of cardiac pacemaker pulse generator [battery] (principal) | CPT/HCPCS: 93280 ==

== ENCOUNTER → 2021-12-01 10:01 | Outpatient (BNVA) | payer MEDICAID, SELFPAY | PROVIDERS: PCP Family Medicine; Visit Provider Internal Medicine Interventional Cardiology | DX: E10.9 Type 1 diabetes mellitus without complications (principal) | CPT/HCPCS: 83036 ==

== ENCOUNTER → 2022-01-19 11:40 | Outpatient (BNVA) | payer MEDICAID, SELFPAY | PROVIDERS: PCP Family Medicine; Visit Provider Family Medicine | DX: R79.9 Abnormal finding of blood chemistry, unspecified (principal); I10 Essential (primary) hypertension; E03.9 Hypothyroidism, unspecified; E10.9 Type 1 diabetes mellitus without complications; R10.9 Unspecified abdominal pain; E78.2 Mixed hyperlipidemia | CPT/HCPCS: 80053; 80061; 81000; 83036; 84443; 85025 ==

== ENCOUNTER → 2022-07-18 16:42 | Outpatient (BNVA) | payer MEDICAID, SELFPAY | PROVIDERS: PCP Family Medicine; Visit Provider Family Medicine | DX: E78.2 Mixed hyperlipidemia (principal); E10.9 Type 1 diabetes mellitus without complications; I10 Essential (primary) hypertension; J44.9 Chronic obstructive pulmonary disease, unspecified | CPT/HCPCS: 80053; 80061; 83036; 84443; 85025 ==

== ENCOUNTER → 2022-10-10 09:58 | Outpatient (BNVA) | payer MEDICAID, SELFPAY | PROVIDERS: PCP Family Medicine; Visit Provider Internal Medicine | DX: E10.649 Type 1 diabetes mellitus with hypoglycemia without coma (principal); E10.65 Type 1 diabetes mellitus with hyperglycemia; E04.1 Nontoxic single thyroid nodule; E34.9 Endocrine disorder, unspecified; I25.10 Atherosclerotic heart disease of native coronary artery without angina pectoris; Z79.4 Long term (current) use of insulin; Z79.890 Hormone replacement therapy | CPT/HCPCS: 99214 ==

== ENCOUNTER → 2022-10-18 08:07 | Outpatient (BNVA) | payer MEDICAID, SELFPAY | PROVIDERS: PCP Family Medicine; Visit Provider Internal Medicine Cardiovascular Disease | DX: Z45.010 Encounter for checking and testing of cardiac pacemaker pulse generator [battery] (principal) | CPT/HCPCS: 93296 ==

== ENCOUNTER 2022-11-22 09:05 | Outpatient (CLI) | payer MEDICAID, SELFPAY ==
--- NOTE | 2022-11-22 11:15 | US_ITS ---
WS: [id number] ULTRASOUND THYROID TECHNIQUE: Ultrasound of the thyroid. CLINICAL INFORMATION: E04.1 - Nontoxic single thyroid nodule COMPARISON: None. FINDINGS: Thyroid: Right and left thyroid lobes are normal in size and echotexture. A few tiny subcentimeter no dules and colloid cysts. No dominant nodules to target for biopsy. Findings are similar to 2020. Prev iously described dominant 7 mm RIGHT thyroid nodule not well visualized today. Right thyroid lobe: 4.9 cm x 1.3 cm x 1.5 cm Left thyroid lobe: 4.1 cm x 1.3 cm x 1.2 cm. Isthmus: 0.3 mm. Cervical lymphadenopathy: None. US/US thyroid [id number] IMPRESSION: Findings are similar compared with 2020 A few tiny subcentimeter nodules and colloid cysts. No suspicious nodules to ta rget for biopsy.
== END 2022-11-22 09:06 | disposition home or self-care (01) ==
PROVIDERS: PCP Family Medicine; Visit Provider Internal Medicine
DX: E04.1 Nontoxic single thyroid nodule (principal)
CPT/HCPCS: 76536

== ENCOUNTER → 2023-02-01 12:02 | Outpatient (BNVA) | payer MEDICAID, SELFPAY | PROVIDERS: PCP Family Medicine; Visit Provider Family Medicine | DX: I10 Essential (primary) hypertension (principal); E10.9 Type 1 diabetes mellitus without complications; R79.9 Abnormal finding of blood chemistry, unspecified; E78.5 Hyperlipidemia, unspecified; E03.9 Hypothyroidism, unspecified; E78.2 Mixed hyperlipidemia; F41.9 Anxiety disorder, unspecified; F32.9 Major depressive disorder, single episode, unspecified | CPT/HCPCS: 80053; 80061; 82043; 83036; 84443; 85025 ==

== ENCOUNTER → 2023-06-24 10:45 | Outpatient (BNVA) | payer MEDICAID, SELFPAY | PROVIDERS: PCP Family Medicine; Visit Provider Nurse Practitioner Family | DX: E10.9 Type 1 diabetes mellitus without complications (principal); E34.9 Endocrine disorder, unspecified; Z79.899 Other long term (current) drug therapy | CPT/HCPCS: 80053; 80061; 81000; 82043; 82310; 83036; 83970; 84443; 85025 ==

== ENCOUNTER 2023-07-05 07:53 | Outpatient (CLI) | payer MEDICAID, SELFPAY ==
--- NOTE | 2023-07-05 08:30 | US_ITS ---
WS: [id number] RIGHT UPPER QUADRANT ULTRASOUND HISTORY: R79.89 - Other specified abnormal findings of blood chemi... COMPARISON: 05/04/2021 Liver: 13.8 cm in length. Normal size liver and echogenicity. No bile duct dilatation or mass. Portal Vein: Normal hepatopetal flow with monophasic waveform. Gallbladder: Normally distended gallbladder with no stones or wall thickening. CBD: 0.4 cm Pancreas: Poorly visualized. Right kidney: 10.6 cm in length. Normal size kidney. Cortical cyst upper pole measures 1.4 x 1.0 x 1. 3 cm. No solid mass. Aorta and IVC: Unremarkable abdominal aorta and IVC. No ascites. IMPRESSION: 1. Normal gallbladder. 2. Very small cortical cyst superior pole RIGHT kidney. No solid mass. 3. No bile duct dilatation.
== END 2023-07-05 07:54 | disposition home or self-care (01) ==
PROVIDERS: PCP Family Medicine; Visit Provider Nurse Practitioner Family
DX: R79.89 Other specified abnormal findings of blood chemistry (principal); N28.1 Cyst of kidney, acquired
CPT/HCPCS: 76705

== ENCOUNTER → 2023-11-05 13:15 | Outpatient (BNVA) | payer MEDICAID, SELFPAY | PROVIDERS: PCP Family Medicine; Visit Provider Family Medicine | DX: I10 Essential (primary) hypertension (principal); E78.2 Mixed hyperlipidemia; E11.9 Type 2 diabetes mellitus without complications; E04.1 Nontoxic single thyroid nodule; G47.00 Insomnia, unspecified | CPT/HCPCS: 80053; 80061; 83036; 84443; 85025 ==

== ENCOUNTER → 2024-06-11 11:26 | Outpatient (BNVA) | payer MEDICAID, SELFPAY | PROVIDERS: PCP Nurse Practitioner Family; Visit Provider Nurse Practitioner Family | DX: E10.65 Type 1 diabetes mellitus with hyperglycemia (principal) | CPT/HCPCS: 80053; 80061; 81000; 82043; 82607; 83036; 84443; 85025 ==

== ENCOUNTER → 2024-11-17 09:56 | Outpatient (BNVA) | payer MEDICAID, SELFPAY | PROVIDERS: PCP Nurse Practitioner Family; Visit Provider Nurse Practitioner Family | DX: E04.2 Nontoxic multinodular goiter (principal); I10 Essential (primary) hypertension; Z79.899 Other long term (current) drug therapy; E11.9 Type 2 diabetes mellitus without complications; E11.649 Type 2 diabetes mellitus with hypoglycemia without coma; E34.9 Endocrine disorder, unspecified; E04.1 Nontoxic single thyroid nodule | CPT/HCPCS: 80053; 80061; 82043; 82306; 83036; 84439; 84443; 85025 ==

== ENCOUNTER 2024-12-21 11:26 | Outpatient (CLI) | payer MEDICAID, SELFPAY ==
--- NOTE | 2024-12-21 09:00 | US_ITS ---
WS: [id number] THYROID ULTRASOUND HISTORY: Nodules. COMPARISON: 11/22/2022, 11/25/2019 Right lobe: 1.2 cm x 1.4 cm x 3.9 cm (w x ap x l). Volume: 3.1 cm3. Normal sized thyroid. There are very small scattered colloid cysts. These colloid cysts are less than a centimeter in diameter. No solid mass. Left lobe: 1.4 cm x 1.2 cm x 3.4 cm (w x ap x l). Volume: 2.9 cm3. Normal sized gland. There are a few scattered very small areas of decreased echogenicity. Tiny colloid cyst. Isthmus: 0.3 cm. US/US thyroid [id number] IMPRESSION: TI-RADS 2; benign findings. No change since 11/22/2022. No FNA or follow-up kasey law
== END 2024-12-21 11:27 | disposition home or self-care (01) ==
PROVIDERS: PCP Nurse Practitioner Family; Visit Provider Internal Medicine
DX: E04.2 Nontoxic multinodular goiter (principal); E11.649 Type 2 diabetes mellitus with hypoglycemia without coma; E34.9 Endocrine disorder, unspecified
CPT/HCPCS: 76536

== ENCOUNTER → 2024-12-28 09:18 | Outpatient (BNVA) | payer MEDICAID, SELFPAY | PROVIDERS: PCP Nurse Practitioner Family; Referring Provider Nurse Practitioner Family; Visit Provider Internal Medicine | DX: E10.65 Type 1 diabetes mellitus with hyperglycemia (principal); E04.1 Nontoxic single thyroid nodule; R79.89 Other specified abnormal findings of blood chemistry; E04.2 Nontoxic multinodular goiter | CPT/HCPCS: 99214 ==